=== PATIENT | male | born 1940 | race Caucasian/White ===

== ENCOUNTER 2017-06-17 12:40 | Inpatient (IN) | payer MEDICARE, OTHER ==
[~2017-06-17] VITALS: Ht 185.4 cm; Wt 109.1 kg
[~2017-06-17 12:40] MED LIST: ALLO100T PO; ATEN-169 PO; HYDR25TA4 PO; IBRU140C PO; LISI-600 PO; METF500T PO; SYN0.088T PO
[2017-06-17 13:40] LABS: BASOPHILS % (AUTO) 0.3 % (0-1); EOSINOPHILS # (AUTO) 0.2 X10'3 (0-0.9); EOSINOPHILS % (AUTO) 1.5 % (0-6); HEMATOCRIT 41.1 % (42.0-52.0); HEMOGLOBIN 13.5 g/dl (14.0-17.9); LYMPHOCYTES # (AUTO) 2.7 X10'3 (1.1-4.8); LYMPHOCYTES % (AUTO) 21.8 % (21-51); MEAN CORPUSCULAR HEMOGLOBIN 31.7 PG (27.0-31.0); MEAN CORPUSCULAR HGB CONC 32.8 % (33.0-36.5); MEAN CORPUSCULAR VOLUME 96.7 FL (78-98); MEAN PLATELET VOLUME 8.7 FL (7.4-10.4); MONOCYTES # (AUTO) 0.8 X10'3 (0-0.9); MONOCYTES % (AUTO) 6.2 % (2-12); NEUTROPHILS # (AUTO) 8.7 X10'3 (1.8-7.7); NEUTROPHILS % (AUTO) 70.2 % (42-75); PLATELET COUNT 352 X10'3 (140-440); RED BLOOD COUNT 4.25 X10'6 (4.70-6.10); RED CELL DISTRIBUTION WIDTH 15.4 % (11.5-14.5); WHITE BLOOD COUNT 12.4 X10'3 (4.5-11.0)
[2017-06-17 13:46] LABS: INR 1.2 INR; PARTIAL THROMBOPLASTIN TIME 34 SECONDS (22-32); PROTHROMBIN TIME 12.6 SECONDS (9.0-12.0)
[2017-06-17 13:55] LABS: ALANINE AMINOTRANSFERASE 19 U/L (12-78); ALBUMIN 2.9 G/DL (3.4-5.0); ALBUMIN/GLOBULIN RATIO 0.6 (1.1-1.5); ALKALINE PHOSPHATASE 97 IU/L (46-116); ANION GAP 7 (8-16); ASPARTATE AMINO TRANSFERASE 17 U/L (10-37); BILIRUBIN,TOTAL 0.7 MG/DL (0.1-1.0); BLOOD UREA NITROGEN 18 MG/DL (7-18); BUN/CREATININE RATIO 14.9 (5.4-32.0); CALCIUM 9.5 MG/DL (8.5-10.1); CHLORIDE 99 MMOL/L (99-107); CREATININE 1.21 MG/DL (0.60-1.10); GLUCOSE 130 MG/DL (70-104); POTASSIUM 4.7 MMOL/L (3.5-5.1); SODIUM 135 MMOL/L (135-145); TOTAL CARBON DIOXIDE 28.7 MMOL/L (24-32); TOTAL PROTEIN 8.1 G/DL (6.4-8.2); eGFR 58 ML/MIN
[2017-06-17] MEDS ORDERED: LIDOcaine 1% 30ml vial SQ STA (15:32)
[2017-06-17] MEDS ORDERED: acetaminophen 325mg tablet PO PRN (17:00)
[2017-06-17] MEDS ORDERED: magnesium Cl slow-release 64mg tablet PO PRN (17:00)
[2017-06-17] MEDS ORDERED: morphine sulfate 8 MG/ML SYRINGE IV PRN ×2 (17:00)
[2017-06-17] MEDS ORDERED: HYDROcodone/acetaminophen 10/325mg tab PO PRN (17:00)
[2017-06-17] MEDS ORDERED: HYDROmorphone 1 mg/ml syringe IV PRN (17:00)
[2017-06-17] MEDS ORDERED: mag hydrox/Alum hydrox/simeth 30ml oral suspension PO PRN (17:00)
[2017-06-17] MEDS ORDERED: potassium Cl 20 mEq SR tablet PO PRN ×2 (17:00)
[2017-06-17] MEDS ORDERED: magnesium 4gm in 100ml NS 100 ML IV PRN (17:00)
[2017-06-17] MEDS ORDERED: ondansetron/PF 4mg/2ml inj IV PRN (17:00)
[2017-06-17] MEDS ORDERED: potassium Cl 40MEQ/NS 500ml 500 ML IV PRN ×2 (17:00)
[2017-06-17] MEDS ORDERED: magnesium 2GM in 50ml NS 50 ML IV PRN (17:00)
[2017-06-17 19:30] VITALS: BP 131/91
[2017-06-17] MEDS: lisinopril 20mg tablet PO SCH (20:07)
[2017-06-17 23:00] VITALS: BP 135/79
[2017-06-18] VITALS (8 sets, daily range): BP systolic 108–152; BP diastolic 64–117
[2017-06-18 02:11] LABS: BASOPHILS # (AUTO) 0.1 X10'3 (0-0.2); BASOPHILS % (AUTO) 0.7 % (0-1); EOSINOPHILS # (AUTO) 0.1 X10'3 (0-0.9); EOSINOPHILS % (AUTO) 0.5 % (0-6); HEMATOCRIT 38.3 % (42.0-52.0); HEMOGLOBIN 12.3 g/dl (14.0-17.9); LYMPHOCYTES # (AUTO) 3.3 X10'3 (1.1-4.8); LYMPHOCYTES % (AUTO) 30.2 % (21-51); MEAN CORPUSCULAR HEMOGLOBIN 30.8 PG (27.0-31.0); MEAN CORPUSCULAR HGB CONC 32.2 % (33.0-36.5); MEAN CORPUSCULAR VOLUME 95.7 FL (78-98); MONOCYTES # (AUTO) 0.7 X10'3 (0-0.9); MONOCYTES % (AUTO) 6.8 % (2-12); NEUTROPHILS # (AUTO) 6.6 X10'3 (1.8-7.7); NEUTROPHILS % (AUTO) 61.8 % (42-75); PLATELET COUNT 279 X10'3 (140-440); RED BLOOD COUNT 4.01 X10'6 (4.70-6.10); RED CELL DISTRIBUTION WIDTH 14.2 % (11.5-14.5); WHITE BLOOD COUNT 10.8 X10'3 (4.5-11.0)
[2017-06-18 02:14] LABS: ALBUMIN 2.7 G/DL (3.4-5.0); ANION GAP 10 (8-16); BLOOD UREA NITROGEN 22 MG/DL (7-18); BUN/CREATININE RATIO 19.5 (5.4-32.0); CALCIUM 9.7 MG/DL (8.5-10.1); CHLORIDE 102 MMOL/L (99-107); CREATININE 1.13 MG/DL (0.60-1.10); GLUCOSE 107 MG/DL (70-104); MAGNESIUM 1.9 MG/DL (1.5-2.4); POTASSIUM 4.5 MMOL/L (3.5-5.1); SODIUM 137 MMOL/L (135-145); TOTAL CARBON DIOXIDE 24.9 MMOL/L (24-32); eGFR 63 ML/MIN
[2017-06-18] MEDS: levoTHYROXINE 88mcg tablet PO SCH (07:44)
[2017-06-18] MEDS: lisinopril 20mg tablet PO SCH ×2 (07:45→20:51)
[2017-06-18] MEDS: allopurinol 100mg tablet PO SCH (07:45)
[2017-06-18] MEDS: K and/or MAG REPLACEMENT MC SCH (07:46)
[2017-06-18] MEDS: IBRUTINIB PO SCH (08:00)
[2017-06-18 16:29] LABS: BFAPPEAR HAZY
[2017-06-18 16:30] LABS: BF RBC COUNT 6500 /CU MM; BF WBC COUNT 1125 /CU MM (0-1000); BFCOLOR YELLOW
[2017-06-18 16:31] LABS: LYMPHOCYTES,BODY FLUID 95 %; MONOCYTES,BODY FLUID 0 %; NEUTROPHILS,BODY FLUID 5 %
[2017-06-18 18:42] LABS: BFVOLUME 57 ML
[2017-06-18] MEDS ORDERED: guaiFENesin/DM 10ml UD oral syrup PO PRN (21:10)
[2017-06-18] MEDS: guaiFENesin/DM oral syrup 5 ML CUP PO PRN (21:48)
[2017-06-19] VITALS (7 sets, daily range): BP systolic 94–114; BP diastolic 57–70
[2017-06-19] MEDS ORDERED: furosemide 10 MG/1 ML 10ml inj IV STA (01:48)
[2017-06-19] MEDS ORDERED: albuterol 2.5 MG/3 ML nebule NEB PRN (02:05)
[2017-06-19] MEDS ORDERED: albuterol 2.5 MG/3 ML nebule ONE (02:13)
[2017-06-19 02:41] LABS: ABG BASE EXCESS -0.7 mmol/L (-2.0-3.0); ABG HCO3 23.1 mmol/L (22.0-26.0); ABG OXYGEN SATURATION 91.4 % (95-98); ABG PH (T) 7.426 (7.350-7.450); ABG PO2 (T) 60.1 mmHg (83-108); ALLEN'S TEST Positive; FCOHb 0.3 % (0.5-1.5); FLOW 6 L/min; FMetHb 0.2 % (0.3-1.12); FO2Hb 90.9 % (94-100); RESPIRATORY RATE (OBSERVED) 18 b/min; TOTAL HEMOGLOBIN 14.9 G/dl (14.0-18.0)
[2017-06-19 06:06] LABS: BASOPHILS # (AUTO) 0.1 X10'3 (0-0.2); BASOPHILS % (AUTO) 0.4 % (0-1); EOSINOPHILS # (AUTO) 0.2 X10'3 (0-0.9); EOSINOPHILS % (AUTO) 1.5 % (0-6); HEMATOCRIT 46.8 % (42.0-52.0); LYMPHOCYTES # (AUTO) 2.3 X10'3 (1.1-4.8); LYMPHOCYTES % (AUTO) 16.1 % (21-51); MEAN CORPUSCULAR HEMOGLOBIN 31.3 PG (27.0-31.0); MEAN CORPUSCULAR HGB CONC 32.2 % (33.0-36.5); MEAN CORPUSCULAR VOLUME 97.3 FL (78-98); MEAN PLATELET VOLUME 8.8 FL (7.4-10.4); MONOCYTES # (AUTO) 1.1 X10'3 (0-0.9); MONOCYTES % (AUTO) 7.4 % (2-12); NEUTROPHILS # (AUTO) 10.5 X10'3 (1.8-7.7); NEUTROPHILS % (AUTO) 74.6 % (42-75); PLATELET COUNT 302 X10'3 (140-440); WHITE BLOOD COUNT 14.1 X10'3 (4.5-11.0)
[2017-06-19 06:15] LABS: ALBUMIN 2.5 G/DL (3.4-5.0); ANION GAP 9 (8-16); BLOOD UREA NITROGEN 26 MG/DL (7-18); BUN/CREATININE RATIO 18.3 (5.4-32.0); CALCIUM 9.4 MG/DL (8.5-10.1); CHLORIDE 100 MMOL/L (99-107); CREATININE 1.42 MG/DL (0.60-1.10); GLUCOSE 147 MG/DL (70-104); MAGNESIUM 1.5 MG/DL (1.5-2.4); POTASSIUM 3.9 MMOL/L (3.5-5.1); SODIUM 135 MMOL/L (135-145); TOTAL CARBON DIOXIDE 26.2 MMOL/L (24-32); eGFR 48 ML/MIN
[2017-06-19] MEDS: K and/or MAG REPLACEMENT MC SCH (08:00)
[2017-06-19] MEDS: IBRUTINIB PO SCH (08:00)
[2017-06-19] MEDS: lisinopril 20mg tablet PO SCH ×3 (08:00→19:29)
[2017-06-19] MEDS: levoTHYROXINE 88mcg tablet PO SCH (08:03)
[2017-06-19] MEDS: allopurinol 100mg tablet PO SCH (08:03)
[2017-06-19] MEDS: HYDROcodone/acetaminophen 5mg/325mg tablet PO PRN ×2 (08:06→19:21)
[2017-06-20 03:00] VITALS: BP 97/71
[2017-06-20 06:00] VITALS: BP 106/66
[2017-06-20 06:08] LABS: BASOPHILS # (AUTO) 0.1 X10'3 (0-0.2); BASOPHILS % (AUTO) 0.6 % (0-1); EOSINOPHILS # (AUTO) 0.6 X10'3 (0-0.9); EOSINOPHILS % (AUTO) 4.4 % (0-6); HEMATOCRIT 42.6 % (42.0-52.0); HEMOGLOBIN 13.7 g/dl (14.0-17.9); LYMPHOCYTES # (AUTO) 4.5 X10'3 (1.1-4.8); LYMPHOCYTES % (AUTO) 35.2 % (21-51); MEAN CORPUSCULAR HEMOGLOBIN 31.3 PG (27.0-31.0); MEAN CORPUSCULAR HGB CONC 32.2 % (33.0-36.5); MEAN CORPUSCULAR VOLUME 97.2 FL (78-98); MEAN PLATELET VOLUME 8.9 FL (7.4-10.4); MONOCYTES # (AUTO) 0.9 X10'3 (0-0.9); MONOCYTES % (AUTO) 7.3 % (2-12); NEUTROPHILS # (AUTO) 6.8 X10'3 (1.8-7.7); NEUTROPHILS % (AUTO) 52.5 % (42-75); PLATELET COUNT 273 X10'3 (140-440); RED BLOOD COUNT 4.38 X10'6 (4.70-6.10); WHITE BLOOD COUNT 12.9 X10'3 (4.5-11.0)
[2017-06-20 06:34] LABS: ALBUMIN 2.3 G/DL (3.4-5.0); ANION GAP 6 (8-16); BLOOD UREA NITROGEN 30 MG/DL (7-18); BUN/CREATININE RATIO 19.5 (5.4-32.0); CHLORIDE 100 MMOL/L (99-107); CREATININE 1.54 MG/DL (0.60-1.10); GLUCOSE 120 MG/DL (70-104); MAGNESIUM 1.7 MG/DL (1.5-2.4); POTASSIUM 3.8 MMOL/L (3.5-5.1); SODIUM 135 MMOL/L (135-145); TOTAL CARBON DIOXIDE 28.9 MMOL/L (24-32); eGFR 44 ML/MIN
[2017-06-20] MEDS: allopurinol 100mg tablet PO SCH (06:54)
[2017-06-20] MEDS: levoTHYROXINE 88mcg tablet PO SCH (06:54)
[2017-06-20] MEDS: lisinopril 20mg tablet PO SCH ×2 (06:54→19:56)
[2017-06-20] MEDS: IBRUTINIB PO SCH (06:54)
[2017-06-20] MEDS: K and/or MAG REPLACEMENT MC SCH (06:55)
[2017-06-20 11:00] VITALS: BP 107/72
[2017-06-20 15:00] VITALS: BP 114/73
[2017-06-20 19:00] VITALS: BP 100/67
[2017-06-20] MEDS: HYDROcodone/acetaminophen 5mg/325mg tablet PO PRN (19:56)
[2017-06-20 23:00] VITALS: BP 112/64
[2017-06-21 03:00] VITALS: BP 108/70
[2017-06-21 05:52] LABS: BASOPHILS # (AUTO) 0.1 X10'3 (0-0.2); BASOPHILS % (AUTO) 0.7 % (0-1); EOSINOPHILS # (AUTO) 0.4 X10'3 (0-0.9); EOSINOPHILS % (AUTO) 3.6 % (0-6); HEMATOCRIT 41.8 % (42.0-52.0); HEMOGLOBIN 13.6 g/dl (14.0-17.9); LYMPHOCYTES # (AUTO) 3.4 X10'3 (1.1-4.8); LYMPHOCYTES % (AUTO) 27.9 % (21-51); MEAN CORPUSCULAR HGB CONC 32.5 % (33.0-36.5); MEAN CORPUSCULAR VOLUME 98.2 FL (78-98); MEAN PLATELET VOLUME 8.5 FL (7.4-10.4); MONOCYTES # (AUTO) 0.9 X10'3 (0-0.9); MONOCYTES % (AUTO) 7.3 % (2-12); NEUTROPHILS # (AUTO) 7.3 X10'3 (1.8-7.7); NEUTROPHILS % (AUTO) 60.5 % (42-75); PLATELET COUNT 232 X10'3 (140-440); RED BLOOD COUNT 4.26 X10'6 (4.70-6.10); RED CELL DISTRIBUTION WIDTH 15.2 % (11.5-14.5); WHITE BLOOD COUNT 12.1 X10'3 (4.5-11.0)
[2017-06-21 06:00] VITALS: BP 121/7
[2017-06-21 06:25] LABS: ALBUMIN 2.2 G/DL (3.4-5.0); ANION GAP 6 (8-16); BLOOD UREA NITROGEN 24 MG/DL (7-18); BUN/CREATININE RATIO 18.5 (5.4-32.0); CHLORIDE 102 MMOL/L (99-107); GLUCOSE 117 MG/DL (70-104); MAGNESIUM 1.7 MG/DL (1.5-2.4); SODIUM 137 MMOL/L (135-145); TOTAL CARBON DIOXIDE 29.3 MMOL/L (24-32); eGFR 54 ML/MIN
[2017-06-21] MEDS: K and/or MAG REPLACEMENT MC SCH (08:00)
[2017-06-21] MEDS: IBRUTINIB PO SCH (08:00)
[2017-06-21] MEDS: lisinopril 20mg tablet PO SCH ×2 (08:06→20:20)
[2017-06-21] MEDS: allopurinol 100mg tablet PO SCH (08:06)
[2017-06-21] MEDS: levoTHYROXINE 88mcg tablet PO SCH (08:06)
[2017-06-21] MEDS ORDERED: LEVO112T52 PO (10:55)
[2017-06-21 11:00] VITALS: BP 100/73
[2017-06-21] MEDS: magnesium hydroxide 30ml (MOM) UD suspension PO PRN (11:56)
[2017-06-21 19:00] VITALS: BP 126/62
[2017-06-21] MEDS: temazepam 15mg capsule PO PRN ×2 (20:22→22:17)
[2017-06-21 23:00] VITALS: BP 112/70
[2017-06-22 02:59] VITALS: BP 129/77
[2017-06-22 05:19] LABS: BASOPHILS # (AUTO) 0.1 X10'3 (0-0.2); BASOPHILS % (AUTO) 0.5 % (0-1); EOSINOPHILS # (AUTO) 0.5 X10'3 (0-0.9); EOSINOPHILS % (AUTO) 3.7 % (0-6); HEMATOCRIT 41.2 % (42.0-52.0); HEMOGLOBIN 13.4 g/dl (14.0-17.9); LYMPHOCYTES # (AUTO) 2.8 X10'3 (1.1-4.8); MEAN CORPUSCULAR HEMOGLOBIN 31.7 PG (27.0-31.0); MEAN CORPUSCULAR HGB CONC 32.5 % (33.0-36.5); MEAN CORPUSCULAR VOLUME 97.6 FL (78-98); MEAN PLATELET VOLUME 8.9 FL (7.4-10.4); NEUTROPHILS % (AUTO) 64.8 % (42-75); PLATELET COUNT 224 X10'3 (140-440); RED BLOOD COUNT 4.22 X10'6 (4.70-6.10); RED CELL DISTRIBUTION WIDTH 14.9 % (11.5-14.5); WHITE BLOOD COUNT 12.4 X10'3 (4.5-11.0)
[2017-06-22 05:43] LABS: ALBUMIN 2.2 G/DL (3.4-5.0); ANION GAP 4 (8-16); BLOOD UREA NITROGEN 20 MG/DL (7-18); BUN/CREATININE RATIO 17.2 (5.4-32.0); CALCIUM 8.9 MG/DL (8.5-10.1); CHLORIDE 102 MMOL/L (99-107); CREATININE 1.16 MG/DL (0.60-1.10); GLUCOSE 125 MG/DL (70-104); MAGNESIUM 1.7 MG/DL (1.5-2.4); POTASSIUM 4.1 MMOL/L (3.5-5.1); SODIUM 137 MMOL/L (135-145); TOTAL CARBON DIOXIDE 30.7 MMOL/L (24-32); eGFR 61 ML/MIN
[2017-06-22 07:00] VITALS: BP 111/81
[2017-06-22] MEDS: allopurinol 100mg tablet PO SCH (07:38)
[2017-06-22] MEDS: lisinopril 20mg tablet PO SCH ×2 (07:38→20:05)
[2017-06-22] MEDS: levoTHYROXINE 112mcg tablet PO SCH (07:38)
[2017-06-22] MEDS: IBRUTINIB PO SCH (08:00)
[2017-06-22] MEDS: K and/or MAG REPLACEMENT MC SCH (08:00)
[2017-06-22] MEDS: magnesium hydroxide 30ml (MOM) UD suspension PO PRN (08:22)
[2017-06-22 11:00] VITALS: BP 104/68
[2017-06-22 15:00] VITALS: BP 111/66
[2017-06-22 19:00] VITALS: BP 129/54
[2017-06-22] MEDS: temazepam 15mg capsule PO PRN ×2 (20:05→21:57)
[2017-06-22] MEDS: HYDROcodone/acetaminophen 5mg/325mg tablet PO PRN (21:56)
[2017-06-22 23:00] VITALS: BP 119/74
[2017-06-23 03:00] VITALS: BP 98/71
[2017-06-23 05:36] LABS: BASOPHILS # (AUTO) 0.1 X10'3 (0-0.2); BASOPHILS % (AUTO) 0.6 % (0-1); EOSINOPHILS # (AUTO) 0.5 X10'3 (0-0.9); EOSINOPHILS % (AUTO) 4.2 % (0-6); HEMOGLOBIN 13.4 g/dl (14.0-17.9); LYMPHOCYTES # (AUTO) 4.2 X10'3 (1.1-4.8); LYMPHOCYTES % (AUTO) 34.3 % (21-51); MEAN CORPUSCULAR HEMOGLOBIN 31.6 PG (27.0-31.0); MEAN CORPUSCULAR HGB CONC 32.7 % (33.0-36.5); MEAN CORPUSCULAR VOLUME 96.8 FL (78-98); MEAN PLATELET VOLUME 9.2 FL (7.4-10.4); MONOCYTES # (AUTO) 0.9 X10'3 (0-0.9); MONOCYTES % (AUTO) 7.7 % (2-12); NEUTROPHILS # (AUTO) 6.5 X10'3 (1.8-7.7); NEUTROPHILS % (AUTO) 53.2 % (42-75); PLATELET COUNT 224 X10'3 (140-440); RED BLOOD COUNT 4.23 X10'6 (4.70-6.10); RED CELL DISTRIBUTION WIDTH 15.1 % (11.5-14.5); WHITE BLOOD COUNT 12.2 X10'3 (4.5-11.0)
[2017-06-23 06:57] LABS: ALANINE AMINOTRANSFERASE 21 U/L (12-78); ALBUMIN 2.1 G/DL (3.4-5.0); ALBUMIN/GLOBULIN RATIO 0.5 (1.1-1.5); ALKALINE PHOSPHATASE 69 IU/L (46-116); ANION GAP 5 (8-16); ASPARTATE AMINO TRANSFERASE 17 U/L (10-37); BILIRUBIN,TOTAL 0.5 MG/DL (0.1-1.0); BLOOD UREA NITROGEN 23 MG/DL (7-18); BUN/CREATININE RATIO 19.8 (5.4-32.0); CALCIUM 8.9 MG/DL (8.5-10.1); CHLORIDE 104 MMOL/L (99-107); CREATININE 1.16 MG/DL (0.60-1.10); GLUCOSE 127 MG/DL (70-104); POTASSIUM 4.2 MMOL/L (3.5-5.1); SODIUM 138 MMOL/L (135-145); TOTAL CARBON DIOXIDE 28.9 MMOL/L (24-32); TOTAL PROTEIN 6.1 G/DL (6.4-8.2); eGFR 61 ML/MIN
[2017-06-23 07:00] VITALS: BP 104/75
[2017-06-23] MEDS: IBRUTINIB PO SCH (08:00)
[2017-06-23] MEDS: K and/or MAG REPLACEMENT MC SCH (08:00)
[2017-06-23] MEDS: allopurinol 100mg tablet PO SCH (09:04)
[2017-06-23] MEDS: levoTHYROXINE 112mcg tablet PO SCH (09:04)
[2017-06-23] MEDS: lisinopril 20mg tablet PO SCH ×2 (09:04→19:04)
[2017-06-23] MEDS: magnesium hydroxide 30ml (MOM) UD suspension PO PRN (09:08)
[2017-06-23 11:00] VITALS: BP 107/75
[2017-06-23] MEDS ORDERED: normal saline 1000ml 1,000 ML IV SCH (11:15)
[2017-06-23] MEDS ORDERED: iohexol 300mg/ml 100ml inj. ONE (14:09)
[2017-06-23 15:00] VITALS: BP 129/67
[2017-06-23 19:00] VITALS: BP 117/67
[2017-06-23] MEDS: guaiFENesin/DM oral syrup 5 ML CUP PO PRN (19:00)
[2017-06-23] MEDS: temazepam 15mg capsule PO PRN (19:04)
[2017-06-23] MEDS: HYDROcodone/acetaminophen 5mg/325mg tablet PO PRN (20:53)
[2017-06-23 23:00] VITALS: BP 113/64
[2017-06-24 03:00] VITALS: BP 104/67
[2017-06-24] MEDS: guaiFENesin/DM oral syrup 5 ML CUP PO PRN ×2 (03:19→19:35)
[2017-06-24 05:30] VITALS: BP 130/73
[2017-06-24 06:12] LABS: BASOPHILS # (AUTO) 0.1 X10'3 (0-0.2); BASOPHILS % (AUTO) 0.5 % (0-1); EOSINOPHILS # (AUTO) 0.5 X10'3 (0-0.9); EOSINOPHILS % (AUTO) 4.5 % (0-6); HEMATOCRIT 40.4 % (42.0-52.0); HEMOGLOBIN 13.1 g/dl (14.0-17.9); LYMPHOCYTES # (AUTO) 2.8 X10'3 (1.1-4.8); LYMPHOCYTES % (AUTO) 24.1 % (21-51); MEAN CORPUSCULAR HEMOGLOBIN 31.7 PG (27.0-31.0); MEAN CORPUSCULAR HGB CONC 32.5 % (33.0-36.5); MEAN CORPUSCULAR VOLUME 97.7 FL (78-98); MEAN PLATELET VOLUME 9.1 FL (7.4-10.4); NEUTROPHILS # (AUTO) 7.2 X10'3 (1.8-7.7); NEUTROPHILS % (AUTO) 61.9 % (42-75); PLATELET COUNT 216 X10'3 (140-440); RED BLOOD COUNT 4.14 X10'6 (4.70-6.10); RED CELL DISTRIBUTION WIDTH 15.3 % (11.5-14.5); WHITE BLOOD COUNT 11.6 X10'3 (4.5-11.0)
[2017-06-24 06:36] LABS: ALANINE AMINOTRANSFERASE 23 U/L (12-78); ALBUMIN 2.2 G/DL (3.4-5.0); ALBUMIN/GLOBULIN RATIO 0.5 (1.1-1.5); ALKALINE PHOSPHATASE 71 IU/L (46-116); ANION GAP 7 (8-16); ASPARTATE AMINO TRANSFERASE 19 U/L (10-37); BILIRUBIN,TOTAL 0.5 MG/DL (0.1-1.0); BLOOD UREA NITROGEN 24 MG/DL (7-18); BUN/CREATININE RATIO 20.5 (5.4-32.0); CALCIUM 8.9 MG/DL (8.5-10.1); CHLORIDE 103 MMOL/L (99-107); CREATININE 1.17 MG/DL (0.60-1.10); GLUCOSE 131 MG/DL (70-104); MAGNESIUM 1.9 MG/DL (1.5-2.4); POTASSIUM 4.1 MMOL/L (3.5-5.1); SODIUM 137 MMOL/L (135-145); TOTAL CARBON DIOXIDE 27.3 MMOL/L (24-32); TOTAL PROTEIN 6.4 G/DL (6.4-8.2); eGFR 61 ML/MIN
[2017-06-24] MEDS: K and/or MAG REPLACEMENT MC SCH (08:00)
[2017-06-24] MEDS: IBRUTINIB PO SCH (08:00)
[2017-06-24] MEDS: levoTHYROXINE 112mcg tablet PO SCH (08:45)
[2017-06-24] MEDS: allopurinol 100mg tablet PO SCH (08:45)
[2017-06-24] MEDS: lisinopril 20mg tablet PO SCH ×2 (08:46→19:34)
[2017-06-24] MEDS: magnesium hydroxide 30ml (MOM) UD suspension PO PRN (08:52)
[2017-06-24 11:00] VITALS: BP 104/68
[2017-06-24] MEDS ORDERED: lactulose 20gm/30ml cup PO ONE (14:55)
[2017-06-24 15:00] VITALS: BP 135/78
[2017-06-24 19:00] VITALS: BP 120/64
[2017-06-24] MEDS: temazepam 15mg capsule PO PRN ×2 (19:34→21:40)
[2017-06-24 23:00] VITALS: BP 115/62
[2017-06-25] MEDS: guaiFENesin/DM oral syrup 5 ML CUP PO PRN ×2 (02:42→20:17)
[2017-06-25 03:00] VITALS: BP 107/73
[2017-06-25 05:30] VITALS: BP 123/74
[2017-06-25 06:01] LABS: BASOPHILS % (AUTO) 0.4 % (0-1); EOSINOPHILS # (AUTO) 0.5 X10'3 (0-0.9); EOSINOPHILS % (AUTO) 4.6 % (0-6); HEMATOCRIT 42.8 % (42.0-52.0); HEMOGLOBIN 13.8 g/dl (14.0-17.9); LYMPHOCYTES # (AUTO) 2.7 X10'3 (1.1-4.8); LYMPHOCYTES % (AUTO) 23.5 % (21-51); MEAN CORPUSCULAR HEMOGLOBIN 31.2 PG (27.0-31.0); MEAN CORPUSCULAR HGB CONC 32.3 % (33.0-36.5); MEAN CORPUSCULAR VOLUME 96.6 FL (78-98); MONOCYTES # (AUTO) 0.9 X10'3 (0-0.9); NEUTROPHILS # (AUTO) 7.2 X10'3 (1.8-7.7); NEUTROPHILS % (AUTO) 63.5 % (42-75); PLATELET COUNT 229 X10'3 (140-440); RED BLOOD COUNT 4.43 X10'6 (4.70-6.10); RED CELL DISTRIBUTION WIDTH 15.6 % (11.5-14.5); WHITE BLOOD COUNT 11.3 X10'3 (4.5-11.0)
[2017-06-25 06:44] LABS: ALANINE AMINOTRANSFERASE 32 U/L (12-78); ALBUMIN 2.5 G/DL (3.4-5.0); ALBUMIN/GLOBULIN RATIO 0.5 (1.1-1.5); ALKALINE PHOSPHATASE 85 IU/L (46-116); ANION GAP 4 (8-16); ASPARTATE AMINO TRANSFERASE 23 U/L (10-37); BILIRUBIN,TOTAL 0.5 MG/DL (0.1-1.0); BLOOD UREA NITROGEN 19 MG/DL (7-18); BUN/CREATININE RATIO 14.8 (5.4-32.0); CALCIUM 9.3 MG/DL (8.5-10.1); CHLORIDE 102 MMOL/L (99-107); CREATININE 1.28 MG/DL (0.60-1.10); GLUCOSE 136 MG/DL (70-104); POTASSIUM 4.4 MMOL/L (3.5-5.1); SODIUM 137 MMOL/L (135-145); TOTAL CARBON DIOXIDE 31.2 MMOL/L (24-32); TOTAL PROTEIN 7.2 G/DL (6.4-8.2); eGFR 55 ML/MIN
[2017-06-25] MEDS: IBRUTINIB PO SCH (08:00)
[2017-06-25] MEDS: K and/or MAG REPLACEMENT MC SCH (08:00)
[2017-06-25] MEDS: lisinopril 20mg tablet PO SCH ×2 (08:01→20:18)
[2017-06-25] MEDS: levoTHYROXINE 112mcg tablet PO SCH (08:02)
[2017-06-25] MEDS: allopurinol 100mg tablet PO SCH (08:03)
[2017-06-25 11:00] VITALS: BP 133/51
[2017-06-25 15:00] VITALS: BP 118/77
[2017-06-25 18:00] VITALS: BP 119/73
[2017-06-25] MEDS: temazepam 15mg capsule PO PRN (20:17)
[2017-06-25 23:00] VITALS: BP 100/50
[2017-06-26 03:00] VITALS: BP 110/56
[2017-06-26] MEDS: guaiFENesin/DM oral syrup 5 ML CUP PO PRN ×2 (03:39→09:19)
[2017-06-26 06:00] VITALS: BP 114/64
[2017-06-26 06:39] LABS: BASOPHILS % (AUTO) 0.3 % (0-1); EOSINOPHILS # (AUTO) 0.4 X10'3 (0-0.9); EOSINOPHILS % (AUTO) 3.3 % (0-6); HEMATOCRIT 42.1 % (42.0-52.0); HEMOGLOBIN 13.8 g/dl (14.0-17.9); LYMPHOCYTES # (AUTO) 1.8 X10'3 (1.1-4.8); MEAN CORPUSCULAR HEMOGLOBIN 31.7 PG (27.0-31.0); MEAN CORPUSCULAR HGB CONC 32.7 % (33.0-36.5); MEAN CORPUSCULAR VOLUME 96.8 FL (78-98); MONOCYTES # (AUTO) 0.8 X10'3 (0-0.9); MONOCYTES % (AUTO) 7.6 % (2-12); NEUTROPHILS # (AUTO) 7.6 X10'3 (1.8-7.7); NEUTROPHILS % (AUTO) 71.8 % (42-75); PLATELET COUNT 200 X10'3 (140-440); RED BLOOD COUNT 4.34 X10'6 (4.70-6.10); RED CELL DISTRIBUTION WIDTH 15.1 % (11.5-14.5); WHITE BLOOD COUNT 10.6 X10'3 (4.5-11.0)
[2017-06-26] MEDS: allopurinol 100mg tablet PO SCH (07:27)
[2017-06-26] MEDS: IBRUTINIB PO SCH (07:27)
[2017-06-26] MEDS: lisinopril 20mg tablet PO SCH (07:27)
[2017-06-26] MEDS: levoTHYROXINE 112mcg tablet PO SCH (07:27)
[2017-06-26] MEDS: K and/or MAG REPLACEMENT MC SCH (07:29)
[2017-06-26] MEDS ORDERED: apixaban 5mg tablet PO SCH (08:00)
[2017-06-26 08:09] LABS: ALANINE AMINOTRANSFERASE 29 U/L (12-78); ALBUMIN 2.4 G/DL (3.4-5.0); ALBUMIN/GLOBULIN RATIO 0.6 (1.1-1.5); ALKALINE PHOSPHATASE 78 IU/L (46-116); ANION GAP 9 (8-16); ASPARTATE AMINO TRANSFERASE 24 U/L (10-37); BILIRUBIN,TOTAL 0.6 MG/DL (0.1-1.0); BLOOD UREA NITROGEN 22 MG/DL (7-18); BUN/CREATININE RATIO 18.2 (5.4-32.0); CALCIUM 8.6 MG/DL (8.5-10.1); CHLORIDE 102 MMOL/L (99-107); CREATININE 1.21 MG/DL (0.60-1.10); GLUCOSE 140 MG/DL (70-104); SODIUM 137 MMOL/L (135-145); TOTAL CARBON DIOXIDE 26.3 MMOL/L (24-32); TOTAL PROTEIN 6.6 G/DL (6.4-8.2); eGFR 58 ML/MIN
[2017-06-26 11:00] VITALS: BP 122/74
[2017-06-26] MEDS ORDERED: APIX5TAB3 PO (11:19)
== END 2017-06-26 13:40 | disposition home health service (06) | DRG 291 ==
LOC: ER 12:40 → ED HOLD 16:57 → PCU 3S 19:25
PROVIDERS: ADMIT Internal Medicine; ATTEND Family Medicine
PROC: 0W9B3ZX Drainage of Left Pleural Cavity, Percutaneous Approach, Diagnostic (ICD-10-PCS; principal; 2017-06-17)
PROC: 0W9B30Z Drainage of Left Pleural Cavity with Drainage Device, Percutaneous Approach (ICD-10-PCS; 2017-06-18)
PROC: BW241ZZ Computerized Tomography (CT Scan) of Chest and Abdomen using Low Osmolar Contrast (ICD-10-PCS; 2017-06-23)
DX: I11.0 Hypertensive heart disease with heart failure (principal); J96.01 Acute respiratory failure with hypoxia; N17.0 Acute kidney failure with tubular necrosis; E43 Unspecified severe protein-calorie malnutrition; J90 Pleural effusion, not elsewhere classified; D63.8 Anemia in other chronic diseases classified elsewhere; C91.10 Chronic lymphocytic leukemia of B-cell type not having achieved remission; I48.91 Unspecified atrial fibrillation; E11.9 Type 2 diabetes mellitus without complications; I50.9 Heart failure, unspecified; E03.9 Hypothyroidism, unspecified; M10.9 Gout, unspecified; Z88.1 Allergy status to other antibiotic agents; Z79.01 Long term (current) use of anticoagulants; Z79.899 Other long term (current) drug therapy; Z91.14 Patient's other noncompliance with medication regimen; Z68.37 Body mass index [BMI] 37.0-37.9, adult
CPT/HCPCS: 32557; 36415; 36600; 71010; 71045; 71250; 71260; 76942; 80048; 80053; 82803; 83735; 84484; 85018; 85025; 85610; 85730; 87070; 88108; 88305; 89051; 93005; 94640; 94667; 94760; 99285; A6213; A6223; A6251; A6253; A6257; A6258; J1940; J2270; J3490; J7030; Q9967

== ENCOUNTER 2017-07-20 07:47 | Day surgery (SDC) | payer MEDICARE, OTHER ==
[2017-07-20] VITALS (9 sets, daily range): BP systolic 77–103; BP diastolic 43–64
[~2017-07-20] VITALS: Ht 185.4 cm; Wt 104.5 kg
[~2017-07-20 07:47] MED LIST changes: +APIX5TAB3 PO; -HYDR25TA4 PO; +LEVO112T52 PO; -METF500T PO; -SYN0.088T PO
[2017-07-20] MEDS ORDERED: HYDROcodone/acetaminophen 10/325mg tab PO PRN (08:15)
[2017-07-20] MEDS ORDERED: APIX5TAB3 PO (08:27)
[2017-07-20] MEDS ORDERED: LIDOcaine 1%/PF (10mg/ml) 5ml vial ONE (08:48)
[2017-07-20 10:03] LABS: ALBUMIN,BODY FLUID 2.1 G/DL; TOTAL PROTEIN,BODY FLUID 4.2 G/DL
[2017-07-20] MEDS ORDERED: LIDOcaine 1% 30ml vial SQ STA (10:34)
== END 2017-07-20 10:00 | disposition home or self-care (01) ==
LOC: SSTAY O 07:47
PROVIDERS: ATTEND Radiology Diagnostic Radiology
DX: J90 Pleural effusion, not elsewhere classified (principal); Z85.6 Personal history of leukemia; I48.91 Unspecified atrial fibrillation; I11.0 Hypertensive heart disease with heart failure; I50.9 Heart failure, unspecified; Z87.01 Personal history of pneumonia (recurrent); I25.10 Atherosclerotic heart disease of native coronary artery without angina pectoris; E11.9 Type 2 diabetes mellitus without complications; E03.9 Hypothyroidism, unspecified; Z98.890 Other specified postprocedural states; Z88.1 Allergy status to other antibiotic agents; Z79.01 Long term (current) use of anticoagulants
CPT/HCPCS: 32555; 71045; 82042; 82465; 82945; 83615; 84157; J2001; J3490

== ENCOUNTER 2017-07-27 07:02 | Day surgery (SDC) | payer MEDICARE, OTHER ==
[~2017-07-27] VITALS: Ht 185.4 cm; Wt 103.5 kg
[2017-07-27] VITALS (12 sets, daily range): BP systolic 115–151; BP diastolic 53–79
[2017-07-27] MEDS ORDERED: HYDROcodone/acetaminophen 10/325mg tab PO PRN (07:30)
[2017-07-27] MEDS ORDERED: LIDOcaine 1% 30ml vial SQ STA (10:53)
[2017-07-27] MEDS ORDERED: LIDOcaine 1% 30ml vial IJ ONE (10:55)
== END 2017-07-27 11:15 | disposition home or self-care (01) ==
LOC: SSTAY O 07:02
PROVIDERS: ATTEND Radiology Diagnostic Radiology
DX: J90 Pleural effusion, not elsewhere classified (principal); I11.9 Hypertensive heart disease without heart failure; I50.9 Heart failure, unspecified; I48.91 Unspecified atrial fibrillation; E11.9 Type 2 diabetes mellitus without complications; Z85.6 Personal history of leukemia; Z79.4 Long term (current) use of insulin; Z79.899 Other long term (current) drug therapy
CPT/HCPCS: 32555; 71045; J3490

== ENCOUNTER 2017-07-29 15:57 | Inpatient (IN) | payer MEDICARE, OTHER ==
[~2017-07-29] VITALS: Ht 185.4 cm; Wt 85.7 kg
[2017-07-29] MEDS ORDERED: diltiazem-D5W 125mg/125ml 125 ML IV ONE (16:13)
[2017-07-29] MEDS ORDERED: diltiazem 5mg/ml 5ml inj. IV ONE ×2 (16:15→17:05)
[2017-07-29 16:43] LABS: BASOPHILS % (AUTO) 0.3 % (0-1); EOSINOPHILS % (AUTO) 0.2 % (0-6); HEMATOCRIT 42.6 % (42.0-52.0); LYMPHOCYTES # (AUTO) 2.9 X10'3 (1.1-4.8); LYMPHOCYTES % (AUTO) 15.4 % (21-51); MEAN CORPUSCULAR HEMOGLOBIN 31.9 PG (27.0-31.0); MEAN CORPUSCULAR HGB CONC 32.9 % (33.0-36.5); MEAN CORPUSCULAR VOLUME 96.9 FL (78-98); MEAN PLATELET VOLUME 10.3 FL (7.4-10.4); MONOCYTES # (AUTO) 1.6 X10'3 (0-0.9); MONOCYTES % (AUTO) 8.5 % (2-12); NEUTROPHILS % (AUTO) 75.6 % (42-75); PLATELET COUNT 297 X10'3 (140-440); RED CELL DISTRIBUTION WIDTH 16.7 % (11.5-14.5); WHITE BLOOD COUNT 18.5 X10'3 (4.5-11.0)
[2017-07-29 17:09] LABS: ALANINE AMINOTRANSFERASE 28 U/L (12-78); ALBUMIN 2.5 G/DL (3.4-5.0); ALBUMIN/GLOBULIN RATIO 0.5 (1.1-1.5); ALKALINE PHOSPHATASE 77 IU/L (46-116); ANION GAP 11 (8-16); ASPARTATE AMINO TRANSFERASE 23 U/L (10-37); BILIRUBIN,TOTAL 0.7 MG/DL (0.1-1.0); BLOOD UREA NITROGEN 52 MG/DL (7-18); BUN/CREATININE RATIO 31.1 (5.4-32.0); CALCIUM 9.4 MG/DL (8.5-10.1); CHLORIDE 99 MMOL/L (99-107); CREATININE 1.67 MG/DL (0.60-1.10); GLUCOSE 119 MG/DL (70-104); MAGNESIUM 2.1 MG/DL (1.5-2.4); POTASSIUM 4.1 MMOL/L (3.5-5.1); SODIUM 135 MMOL/L (135-145); TOTAL CARBON DIOXIDE 25.2 MMOL/L (24-32); TOTAL PROTEIN 7.3 G/DL (6.4-8.2); eGFR 40 ML/MIN
[2017-07-29] MEDS ORDERED: magnesium 4gm in 100ml NS 100 ML IV PRN (17:55)
[2017-07-29] MEDS ORDERED: acetaminophen 325mg tablet PO PRN (17:55)
[2017-07-29] MEDS ORDERED: mag hydrox/Alum hydrox/simeth 30ml oral suspension PO PRN (17:55)
[2017-07-29] MEDS ORDERED: piperacillin/tazo 3.375gm/50ml 50 ML IV ONE (17:55)
[2017-07-29] MEDS ORDERED: ondansetron/PF 4mg/2ml inj IV PRN (17:55)
[2017-07-29] MEDS ORDERED: potassium Cl 20 mEq SR tablet PO PRN ×2 (17:55)
[2017-07-29] MEDS ORDERED: magnesium 2GM in 50ml NS 50 ML IV PRN (17:55)
[2017-07-29] MEDS ORDERED: potassium Cl 40MEQ/NS 500ml 500 ML IV PRN ×2 (17:55)
[2017-07-29] MEDS ORDERED: magnesium Cl slow-release 64mg tablet PO PRN (17:55)
[2017-07-29] MEDS ORDERED: azithromycin/NS 500mg/250ml 250 ML IV ONE (18:05)
[2017-07-29] MEDS ORDERED: atenolol 50mg tablet PO SCH (18:10)
[2017-07-29] MEDS ORDERED: glucagon, human recombinant 1mg kit SUBCUT PRN (19:10)
[2017-07-29] MEDS ORDERED: dextrose 50%-water 50ml dispensing syringe IV PRN ×2 (19:10)
[2017-07-29] MEDS ORDERED: dextrose ORAL solution 15 GM/59 ML bottle PO PRN ×2 (19:10)
[2017-07-29] MEDS ORDERED: MESSAGE TO PHARMACY PO ONE (19:10)
[2017-07-29 19:14] LABS: HEMOGLOBIN A1C 6.6 % (4.5-6.2)
[2017-07-29] MEDS: CefTRIAXone/D5W-Rocephin 1gm 50 ML IV SCH (20:50)
[2017-07-29] MEDS: furosemide 20 MG/2 ML vial IV SCH (20:50)
[2017-07-29] MEDS: metoprolol tartrate 25mg tablet PO SCH (20:51)
[2017-07-29] MEDS: insulin glargine (Lantus) pen - multi-dose SQ SCH (21:00)
[2017-07-29] MEDS: apixaban 5mg tablet PO SCH (21:10)
[2017-07-29] MEDS ORDERED: vancomycin/NS 1 GM ADD-VANTAGE 250 ML IV ONE (21:50)
[2017-07-30] MEDS: cefepime 1GM/NS ADD-VANTAGE 100 ML IV SCH ×3 (00:52→16:38)
[2017-07-30 04:43] LABS: ALANINE AMINOTRANSFERASE 32 U/L (12-78); ALBUMIN 2.2 G/DL (3.4-5.0); ALBUMIN/GLOBULIN RATIO 0.5 (1.1-1.5); ALKALINE PHOSPHATASE 71 IU/L (46-116); ANION GAP 11 (8-16); ASPARTATE AMINO TRANSFERASE 23 U/L (10-37); BILIRUBIN,TOTAL 0.5 MG/DL (0.1-1.0); BLOOD UREA NITROGEN 53 MG/DL (7-18); BUN/CREATININE RATIO 31.5 (5.4-32.0); CALCIUM 8.8 MG/DL (8.5-10.1); CHLORIDE 101 MMOL/L (99-107); CREATININE 1.68 MG/DL (0.60-1.10); GLUCOSE 127 MG/DL (70-104); MAGNESIUM 2.1 MG/DL (1.5-2.4); POTASSIUM 4.3 MMOL/L (3.5-5.1); SODIUM 135 MMOL/L (135-145); TOTAL CARBON DIOXIDE 23.4 MMOL/L (24-32); TOTAL PROTEIN 6.6 G/DL (6.4-8.2); eGFR 40 ML/MIN
[2017-07-30 05:01] LABS: BASOPHILS # (AUTO) 0.1 X10'3 (0-0.2); BASOPHILS % (AUTO) 0.5 % (0-1); EOSINOPHILS # (AUTO) 0.3 X10'3 (0-0.9); EOSINOPHILS % (AUTO) 1.5 % (0-6); HEMATOCRIT 38.2 % (42.0-52.0); HEMOGLOBIN 12.9 g/dl (14.0-17.9); LYMPHOCYTES # (AUTO) 2.5 X10'3 (1.1-4.8); LYMPHOCYTES % (AUTO) 13.2 % (21-51); MEAN CORPUSCULAR HEMOGLOBIN 32.4 PG (27.0-31.0); MEAN CORPUSCULAR HGB CONC 33.7 % (33.0-36.5); MEAN CORPUSCULAR VOLUME 96.3 FL (78-98); MEAN PLATELET VOLUME 9.8 FL (7.4-10.4); MONOCYTES # (AUTO) 1.5 X10'3 (0-0.9); MONOCYTES % (AUTO) 8.2 % (2-12); NEUTROPHILS # (AUTO) 14.5 X10'3 (1.8-7.7); NEUTROPHILS % (AUTO) 76.6 % (42-75); PLATELET COUNT 291 X10'3 (140-440); RED BLOOD COUNT 3.97 X10'6 (4.70-6.10); RED CELL DISTRIBUTION WIDTH 16.2 % (11.5-14.5); WHITE BLOOD COUNT 18.9 X10'3 (4.5-11.0)
[2017-07-30 06:02] LABS: CLARITY,URINE Clear (Clear); COLOR,URINE Yellow (Yellow); GLUCOSE, URINE Negative (Neg); KETONES,URINE Negative (Neg); LEUKOCYTE ESTERASE ,URINE Small (Neg); NITRITES, URINE Negative (Neg); OCCULT BLOOD,URINE Negative (Neg); PROTEIN,URINE Negative (Neg); UROBILINOGEN,URINE 0.2 E.U/dL (0.2-1.0)
[2017-07-30 06:07] LABS: UA COLLECTION TYPE URINAL
[2017-07-30 06:08] LABS: BACTERIA,URINE NONE SEEN /HPF (Neg); MUCUS STRANDS NONE SEEN /LPF (Neg); RBC,URINE NONE SEEN /HPF (0-2); SQUAMOUS EPITHELIAL CELL,UR FEW /LPF (FEW); WBC,URINE 0-4 /HPF (0-4)
[2017-07-30] MEDS: CefTRIAXone/D5W-Rocephin 1gm 50 ML IV SCH (08:00)
[2017-07-30] MEDS: metoprolol tartrate 25mg tablet PO SCH ×2 (08:00→20:00)
[2017-07-30] MEDS: furosemide 20 MG/2 ML vial IV SCH ×2 (08:00→20:00)
[2017-07-30] MEDS: K and/or MAG REPLACEMENT MC SCH (08:00)
[2017-07-30] MEDS: azithromycin/NS 500mg/250ml 250 ML IV SCH (08:00)
[2017-07-30] MEDS ORDERED: metoprolol succinate 25mg (24-HOUR) SR. Tablet PO SCH (08:00)
[2017-07-30 08:43] VITALS: BP 97/65
[2017-07-30] MEDS: allopurinol 300 MG tablet PO SCH (09:53)
[2017-07-30] MEDS: levoTHYROXINE 112mcg tablet PO SCH (09:53)
[2017-07-30] MEDS: apixaban 5mg tablet PO SCH (09:57)
[2017-07-30 11:00] VITALS: BP 84/58
[2017-07-30 15:00] VITALS: BP 92/63
[2017-07-30] MEDS: lactobacillus rhamnosus 10,000 MMU CELLS/CAPSULE PO SCH (16:38)
[2017-07-30 18:00] VITALS: BP 97/72
[2017-07-30] MEDS: insulin glargine (Lantus) pen - multi-dose SQ SCH (21:00)
[2017-07-30 22:00] VITALS: BP 100/66
[2017-07-30] MEDS: magnesium hydroxide 30ml (MOM) UD suspension PO PRN (22:28)
[2017-07-31] VITALS (11 sets, daily range): BP systolic 78–99; BP diastolic 50–64
[2017-07-31] MEDS: cefepime 1GM/NS ADD-VANTAGE 100 ML IV SCH ×2 (00:41→07:22)
[2017-07-31 06:27] LABS: BASOPHILS % (AUTO) 0.2 % (0-1); EOSINOPHILS # (AUTO) 0.4 X10'3 (0-0.9); EOSINOPHILS % (AUTO) 2.5 % (0-6); HEMATOCRIT 39.1 % (42.0-52.0); HEMOGLOBIN 12.8 g/dl (14.0-17.9); LYMPHOCYTES % (AUTO) 12.7 % (21-51); MEAN CORPUSCULAR HEMOGLOBIN 32.2 PG (27.0-31.0); MEAN CORPUSCULAR HGB CONC 32.8 % (33.0-36.5); MONOCYTES # (AUTO) 1.2 X10'3 (0-0.9); MONOCYTES % (AUTO) 7.9 % (2-12); NEUTROPHILS # (AUTO) 11.9 X10'3 (1.8-7.7); NEUTROPHILS % (AUTO) 76.7 % (42-75); PLATELET COUNT 294 X10'3 (140-440); RED BLOOD COUNT 3.99 X10'6 (4.70-6.10); WHITE BLOOD COUNT 15.5 X10'3 (4.5-11.0)
[2017-07-31 06:51] LABS: ALANINE AMINOTRANSFERASE 48 U/L (12-78); ALBUMIN/GLOBULIN RATIO 0.5 (1.1-1.5); ALKALINE PHOSPHATASE 70 IU/L (46-116); ANION GAP 11 (8-16); ASPARTATE AMINO TRANSFERASE 34 U/L (10-37); BILIRUBIN,TOTAL 0.6 MG/DL (0.1-1.0); BLOOD UREA NITROGEN 55 MG/DL (7-18); CALCIUM 8.7 MG/DL (8.5-10.1); CHLORIDE 100 MMOL/L (99-107); CREATININE 1.72 MG/DL (0.60-1.10); GLUCOSE 137 MG/DL (70-104); MAGNESIUM 2.3 MG/DL (1.5-2.4); POTASSIUM 4.1 MMOL/L (3.5-5.1); SODIUM 135 MMOL/L (135-145); TOTAL CARBON DIOXIDE 24.4 MMOL/L (24-32); TOTAL PROTEIN 6.3 G/DL (6.4-8.2); eGFR 39 ML/MIN
[2017-07-31] MEDS: lactobacillus rhamnosus 10,000 MMU CELLS/CAPSULE PO SCH ×2 (07:21→17:15)
[2017-07-31] MEDS: metoprolol tartrate 25mg tablet PO SCH ×2 (07:21→20:00)
[2017-07-31] MEDS: allopurinol 300 MG tablet PO SCH (07:22)
[2017-07-31] MEDS: azithromycin/NS 500mg/250ml 250 ML IV SCH (07:23)
[2017-07-31] MEDS: CefTRIAXone/D5W-Rocephin 1gm 50 ML IV SCH (07:23)
[2017-07-31] MEDS: furosemide 20 MG/2 ML vial IV SCH ×2 (07:24→08:00)
[2017-07-31] MEDS: levoTHYROXINE 112mcg tablet PO SCH (07:31)
[2017-07-31] MEDS: K and/or MAG REPLACEMENT MC SCH (08:00)
[2017-07-31 10:09] LABS: INR 1.2 INR; PARTIAL THROMBOPLASTIN TIME 34 SECONDS (22-32); PROTHROMBIN TIME 12.5 SECONDS (9.0-12.0)
[2017-07-31 10:21] LABS: C-REACTIVE PROTEIN 14.45 MG/DL (0.0-0.5); CREATINE KINASE 40 U/L (39-308); LIPASE 137 U/L (73-393)
[2017-07-31] MEDS ORDERED: LIDOcaine 1%/PF (10mg/ml) 5ml vial ONE ×2 (11:48)
[2017-07-31] MEDS ORDERED: doxycycline inj 100 MG in normal saline 100ml IV soln 100 ML IV SCH (20:00)
[2017-07-31] MEDS: insulin glargine (Lantus) pen - multi-dose SQ SCH (21:00)
[2017-08-01 02:00] VITALS: BP 80/54
[2017-08-01 06:00] VITALS: BP 78/56
[2017-08-01 06:57] LABS: BASOPHILS # (AUTO) 0.1 X10'3 (0-0.2); BASOPHILS % (AUTO) 0.4 % (0-1); EOSINOPHILS # (AUTO) 0.3 X10'3 (0-0.9); EOSINOPHILS % (AUTO) 2.3 % (0-6); HEMATOCRIT 37.3 % (42.0-52.0); HEMOGLOBIN 12.8 g/dl (14.0-17.9); LYMPHOCYTES # (AUTO) 2.3 X10'3 (1.1-4.8); LYMPHOCYTES % (AUTO) 16.9 % (21-51); MEAN CORPUSCULAR HEMOGLOBIN 32.5 PG (27.0-31.0); MEAN CORPUSCULAR HGB CONC 34.2 % (33.0-36.5); MEAN CORPUSCULAR VOLUME 95.1 FL (78-98); MEAN PLATELET VOLUME 9.7 FL (7.4-10.4); MONOCYTES # (AUTO) 1.2 X10'3 (0-0.9); MONOCYTES % (AUTO) 8.7 % (2-12); NEUTROPHILS # (AUTO) 9.9 X10'3 (1.8-7.7); NEUTROPHILS % (AUTO) 71.7 % (42-75); PLATELET COUNT 271 X10'3 (140-440); RED BLOOD COUNT 3.93 X10'6 (4.70-6.10); RED CELL DISTRIBUTION WIDTH 16.1 % (11.5-14.5); WHITE BLOOD COUNT 13.9 X10'3 (4.5-11.0)
[2017-08-01 07:20] LABS: ALANINE AMINOTRANSFERASE 59 U/L (12-78); ALBUMIN 1.8 G/DL (3.4-5.0); ALBUMIN/GLOBULIN RATIO 0.5 (1.1-1.5); ALKALINE PHOSPHATASE 71 IU/L (46-116); ANION GAP 11 (8-16); ASPARTATE AMINO TRANSFERASE 41 U/L (10-37); BILIRUBIN,TOTAL 0.5 MG/DL (0.1-1.0); BLOOD UREA NITROGEN 54 MG/DL (7-18); BUN/CREATININE RATIO 37.8 (5.4-32.0); CALCIUM 8.4 MG/DL (8.5-10.1); CHLORIDE 100 MMOL/L (99-107); CREATININE 1.43 MG/DL (0.60-1.10); GLUCOSE 118 MG/DL (70-104); MAGNESIUM 2.2 MG/DL (1.5-2.4); SODIUM 133 MMOL/L (135-145); TOTAL CARBON DIOXIDE 22.3 MMOL/L (24-32); TOTAL PROTEIN 5.8 G/DL (6.4-8.2); eGFR 48 ML/MIN
[2017-08-01] MEDS: furosemide 20 MG/2 ML vial IV SCH (08:00)
[2017-08-01] MEDS: metoprolol tartrate 25mg tablet PO SCH ×2 (08:00→19:35)
[2017-08-01] MEDS: levoTHYROXINE 112mcg tablet PO SCH (08:22)
[2017-08-01] MEDS: lactobacillus rhamnosus 10,000 MMU CELLS/CAPSULE PO SCH ×2 (08:22→08:26)
[2017-08-01] MEDS: allopurinol 300 MG tablet PO SCH (08:26)
[2017-08-01] MEDS: K and/or MAG REPLACEMENT MC SCH (08:27)
[2017-08-01 11:00] VITALS: BP 85/50
[2017-08-01 15:00] VITALS: BP 90/67
[2017-08-01 19:00] VITALS: BP 94/60
[2017-08-01] MEDS: magnesium hydroxide 30ml (MOM) UD suspension PO PRN (19:31)
[2017-08-01] MEDS: insulin glargine (Lantus) pen - multi-dose SQ SCH (20:49)
[2017-08-01 23:00] VITALS: BP 100/65
[2017-08-02] VITALS (7 sets, daily range): BP systolic 81–100; BP diastolic 52–69
[2017-08-02] MEDS ORDERED: digoxin 250mcg/ml 2ml ampule IV ONE (05:10)
[2017-08-02 06:03] LABS: BASOPHILS # (AUTO) 0.1 X10'3 (0-0.2); BASOPHILS % (AUTO) 0.4 % (0-1); EOSINOPHILS # (AUTO) 0.3 X10'3 (0-0.9); EOSINOPHILS % (AUTO) 2.3 % (0-6); HEMATOCRIT 38.6 % (42.0-52.0); HEMOGLOBIN 13.2 g/dl (14.0-17.9); LYMPHOCYTES # (AUTO) 2.7 X10'3 (1.1-4.8); LYMPHOCYTES % (AUTO) 20.3 % (21-51); MEAN CORPUSCULAR HEMOGLOBIN 32.5 PG (27.0-31.0); MEAN CORPUSCULAR HGB CONC 34.1 % (33.0-36.5); MEAN CORPUSCULAR VOLUME 95.4 FL (78-98); MEAN PLATELET VOLUME 9.4 FL (7.4-10.4); MONOCYTES # (AUTO) 1.1 X10'3 (0-0.9); MONOCYTES % (AUTO) 8.2 % (2-12); NEUTROPHILS # (AUTO) 9.3 X10'3 (1.8-7.7); NEUTROPHILS % (AUTO) 68.8 % (42-75); PLATELET COUNT 330 X10'3 (140-440); RED BLOOD COUNT 4.05 X10'6 (4.70-6.10); WHITE BLOOD COUNT 13.5 X10'3 (4.5-11.0)
[2017-08-02 06:39] LABS: ALANINE AMINOTRANSFERASE 72 U/L (12-78); ALBUMIN/GLOBULIN RATIO 0.5 (1.1-1.5); ALKALINE PHOSPHATASE 79 IU/L (46-116); ANION GAP 10 (8-16); ASPARTATE AMINO TRANSFERASE 49 U/L (10-37); BILIRUBIN,TOTAL 0.4 MG/DL (0.1-1.0); BLOOD UREA NITROGEN 45 MG/DL (7-18); CALCIUM 8.7 MG/DL (8.5-10.1); CHLORIDE 100 MMOL/L (99-107); CREATININE 1.45 MG/DL (0.60-1.10); GLUCOSE 126 MG/DL (70-104); MAGNESIUM 2.4 MG/DL (1.5-2.4); SODIUM 135 MMOL/L (135-145); TOTAL CARBON DIOXIDE 25.3 MMOL/L (24-32); TOTAL PROTEIN 6.2 G/DL (6.4-8.2); eGFR 47 ML/MIN
[2017-08-02] MEDS: metoprolol tartrate 25mg tablet PO SCH ×2 (07:18→20:00)
[2017-08-02] MEDS: furosemide 20 MG/2 ML vial IV SCH (07:18)
[2017-08-02] MEDS: levoTHYROXINE 112mcg tablet PO SCH (07:33)
[2017-08-02] MEDS: allopurinol 300 MG tablet PO SCH (07:33)
[2017-08-02] MEDS: lactobacillus rhamnosus 10,000 MMU CELLS/CAPSULE PO SCH ×2 (07:33→17:17)
[2017-08-02] MEDS: K and/or MAG REPLACEMENT MC SCH (08:00)
[2017-08-02] MEDS: magnesium hydroxide 30ml (MOM) UD suspension PO PRN (09:02)
[2017-08-02] MEDS ORDERED: magnesium citrate 296ml oral solution PO ONE (10:15)
[2017-08-02] MEDS ORDERED: HYDROcodone/acetaminophen 5mg/325mg tablet PO ONE (17:35)
[2017-08-02] MEDS ORDERED: guaiFENesin/codeine phos 10ml UD oral syrup PO PRN (17:40)
[2017-08-02] MEDS: insulin glargine (Lantus) pen - multi-dose SQ SCH (21:00)
[2017-08-03] VITALS (7 sets, daily range): BP systolic 93–124; BP diastolic 59–81
[2017-08-03] MEDS: furosemide 20 MG/2 ML vial IV SCH (06:59)
[2017-08-03] MEDS: metoprolol tartrate 25mg tablet PO SCH ×2 (07:00→20:00)
[2017-08-03 07:09] LABS: BASOPHILS # (AUTO) 0.1 X10'3 (0-0.2); BASOPHILS % (AUTO) 0.8 % (0-1); EOSINOPHILS # (AUTO) 0.3 X10'3 (0-0.9); HEMATOCRIT 36.2 % (42.0-52.0); HEMOGLOBIN 12.1 g/dl (14.0-17.9); LYMPHOCYTES # (AUTO) 2.7 X10'3 (1.1-4.8); LYMPHOCYTES % (AUTO) 25.9 % (21-51); MEAN CORPUSCULAR HEMOGLOBIN 32.1 PG (27.0-31.0); MEAN CORPUSCULAR HGB CONC 33.5 % (33.0-36.5); MEAN CORPUSCULAR VOLUME 95.8 FL (78-98); MONOCYTES # (AUTO) 0.7 X10'3 (0-0.9); MONOCYTES % (AUTO) 7.2 % (2-12); NEUTROPHILS # (AUTO) 6.5 X10'3 (1.8-7.7); NEUTROPHILS % (AUTO) 63.1 % (42-75); PLATELET COUNT 296 X10'3 (140-440); RED BLOOD COUNT 3.78 X10'6 (4.70-6.10); RED CELL DISTRIBUTION WIDTH 15.9 % (11.5-14.5); WHITE BLOOD COUNT 10.3 X10'3 (4.5-11.0)
[2017-08-03 07:21] LABS: ALANINE AMINOTRANSFERASE 59 U/L (12-78); ALBUMIN 1.8 G/DL (3.4-5.0); ALBUMIN/GLOBULIN RATIO 0.5 (1.1-1.5); ALKALINE PHOSPHATASE 73 IU/L (46-116); ANION GAP 6 (8-16); ASPARTATE AMINO TRANSFERASE 31 U/L (10-37); BILIRUBIN,TOTAL 0.4 MG/DL (0.1-1.0); BLOOD UREA NITROGEN 37 MG/DL (7-18); BUN/CREATININE RATIO 28.9 (5.4-32.0); CALCIUM 8.7 MG/DL (8.5-10.1); CHLORIDE 104 MMOL/L (99-107); CREATININE 1.28 MG/DL (0.60-1.10); GLUCOSE 122 MG/DL (70-104); MAGNESIUM 2.4 MG/DL (1.5-2.4); POTASSIUM 4.7 MMOL/L (3.5-5.1); SODIUM 137 MMOL/L (135-145); TOTAL CARBON DIOXIDE 26.6 MMOL/L (24-32); TOTAL PROTEIN 5.6 G/DL (6.4-8.2); eGFR 55 ML/MIN
[2017-08-03] MEDS: lactobacillus rhamnosus 10,000 MMU CELLS/CAPSULE PO SCH ×2 (07:22→17:16)
[2017-08-03] MEDS: K and/or MAG REPLACEMENT MC SCH (07:22)
[2017-08-03] MEDS: allopurinol 300 MG tablet PO SCH (07:22)
[2017-08-03] MEDS: levoTHYROXINE 112mcg tablet PO SCH (07:22)
[2017-08-03] MEDS: insulin glargine (Lantus) pen - multi-dose SQ SCH (21:00)
[2017-08-03] MEDS ORDERED: Melatonin 3mg tablet PO PRN (23:00)
[2017-08-04] VITALS (25 sets, daily range): BP systolic 93–154; BP diastolic 52–92
[2017-08-04] MEDS: lactobacillus rhamnosus 10,000 MMU CELLS/CAPSULE PO SCH ×2 (07:30→17:15)
[2017-08-04] MEDS ORDERED: MIDAZolam 1mg/ml 10ml vial ONE (07:53)
[2017-08-04] MEDS ORDERED: fentaNYL/PF 50MCG/1 ML 2ML syringe ONE (07:53)
[2017-08-04] MEDS: allopurinol 300 MG tablet PO SCH (08:00)
[2017-08-04] MEDS: furosemide 20 MG/2 ML vial IV SCH (08:00)
[2017-08-04] MEDS: levoTHYROXINE 112mcg tablet PO SCH (08:00)
[2017-08-04] MEDS: K and/or MAG REPLACEMENT MC SCH (08:00)
[2017-08-04] MEDS: metoprolol tartrate 25mg tablet PO SCH ×2 (08:00→20:00)
[2017-08-04] MEDS ORDERED: rocuronium 10mg/ml inj IV ONE ×2 (08:03)
[2017-08-04] MEDS ORDERED: propofol inj 20 ML IV ONE (08:03)
[2017-08-04] MEDS ORDERED: ceFAZolin 1000mg inj ONE ×3 (08:28→11:00)
[2017-08-04] MEDS ORDERED: metoprolol tartrate 1mg/ml inj IV ONE (09:16)
[2017-08-04] MEDS ORDERED: ringers solution, lacted 1,000 ML IV SCH (09:18)
[2017-08-04] MEDS ORDERED: ondansetron/PF 4mg/2ml inj IV PRN (09:20)
[2017-08-04] MEDS ORDERED: meperidine/PF 50mg/ml syringe IV PRN (09:20)
[2017-08-04] MEDS ORDERED: morphine 2 MG/ML inj. syringe IV PRN ×2 (09:20)
[2017-08-04] MEDS ORDERED: albumin (Human) 5% 250ml 250 ML IV ONE ×2 (10:42)
[2017-08-04] MEDS ORDERED: propofol 1000mg/100ml bottle 100 ML IV PRN (12:23)
[2017-08-04 12:30] LABS: ABG BASE EXCESS -5.2 mmol/L (-2.0-3.0); ABG HCO3 18.7 mmol/L (22.0-26.0); ABG OXYGEN SATURATION 98.3 % (95-98); ABG PCO2 (T) 30.4 mmHg (35.0-48.0); ABG PH (T) 7.403 (7.350-7.450); ABG PO2 (T) 115.2 mmHg (83-108); FCOHb 0.3 % (0.5-1.5); FMetHb 0.2 % (0.3-1.12); FO2Hb 97.8 % (94-100); PEEP 10 cm H2O; RESPIRATORY RATE 12 b/min; TIDAL VOLUME 600 mL; TOTAL HEMOGLOBIN 12.8 G/dl (14.0-18.0)
[2017-08-04] MEDS: FENTANYL-0.9 % NACL/PF 100 ML IV PRN ×2 (13:46→22:42)
[2017-08-04] MEDS: potassium CL 20mEq in D5-1/2NS 1,000 ML IV SCH (16:26)
[2017-08-04] MEDS: cefazolin 1gm/NS 100mL 100 ML IV SCH (16:26)
[2017-08-04] MEDS: insulin glargine (Lantus) pen - multi-dose SQ SCH (21:00)
[2017-08-04] MEDS ORDERED: albumin (human) 25% 100 ML IV solution IV ONE (22:15)
[2017-08-05] VITALS (23 sets, daily range): BP systolic 90–122; BP diastolic 52–72
[2017-08-05] MEDS: cefazolin 1gm/NS 100mL 100 ML IV SCH (01:37)
[2017-08-05] MEDS: potassium CL 20mEq in D5-1/2NS 1,000 ML IV SCH ×3 (02:01→12:12)
[2017-08-05 03:04] LABS: MAGNESIUM 2.2 MG/DL (1.5-2.4)
[2017-08-05 03:40] LABS: ABG BASE EXCESS -2.8 mmol/L (-2.0-3.0); ABG HCO3 21.5 mmol/L (22.0-26.0); ABG OXYGEN SATURATION 98.7 % (95-98); ABG PCO2 (T) 35.8 mmHg (35.0-48.0); ABG PH (T) 7.397 (7.350-7.450); ABG PO2 (T) 143.9 mmHg (83-108); FCOHb 0.3 % (0.5-1.5); FMetHb 0.2 % (0.3-1.12); FO2Hb 98.2 % (94-100); MINUTE VOLUME 9 L/min; PATIENT TEMPERATURE 37.2; PEEP 8 cm H2O; RESPIRATORY RATE 12 b/min; RESPIRATORY RATE (OBSERVED) 14 b/min; TIDAL VOLUME 600 mL; TOTAL HEMOGLOBIN 11.3 G/dl (14.0-18.0)
[2017-08-05] MEDS: allopurinol 300 MG tablet PO SCH (07:39)
[2017-08-05] MEDS: lactobacillus rhamnosus 10,000 MMU CELLS/CAPSULE PO SCH ×2 (07:39→17:30)
[2017-08-05] MEDS: furosemide 20 MG/2 ML vial IV SCH (07:39)
[2017-08-05] MEDS: levoTHYROXINE 112mcg tablet PO SCH (07:39)
[2017-08-05] MEDS: metoprolol tartrate 25mg tablet PO SCH ×2 (07:40→20:00)
[2017-08-05 07:47] LABS: ALANINE AMINOTRANSFERASE 32 U/L (12-78); ALBUMIN 2.8 G/DL (3.4-5.0); ALKALINE PHOSPHATASE 53 IU/L (46-116); ANION GAP 7 (8-16); ASPARTATE AMINO TRANSFERASE 17 U/L (10-37); BILIRUBIN,TOTAL 0.5 MG/DL (0.1-1.0); BLOOD UREA NITROGEN 31 MG/DL (7-18); BUN/CREATININE RATIO 22.5 (5.4-32.0); CALCIUM 8.5 MG/DL (8.5-10.1); CHLORIDE 104 MMOL/L (99-107); CREATININE 1.38 MG/DL (0.60-1.10); GLUCOSE 213 MG/DL (70-104); POTASSIUM 5.5 MMOL/L (3.5-5.1); SODIUM 136 MMOL/L (135-145); TOTAL CARBON DIOXIDE 24.9 MMOL/L (24-32); TOTAL PROTEIN 5.5 G/DL (6.4-8.2); eGFR 50 ML/MIN
[2017-08-05] MEDS: K and/or MAG REPLACEMENT MC SCH (08:00)
[2017-08-05] MEDS ORDERED: CADD PCA waste documentation MC PRN (08:45)
[2017-08-05] MEDS ORDERED: ipratropium/albuterol 3ml nebule NEB PRN (08:45)
[2017-08-05] MEDS ORDERED: racepinephrine 11.25mg/0.5ml nebule NEB PRN (08:45)
[2017-08-05] MEDS ORDERED: naloxone 0.4 mg/ml inj IV PRN (08:45)
[2017-08-05] MEDS: normal saline 1000ml 1,000 ML IV SCH ×2 (08:49→22:31)
[2017-08-05] MEDS: ipratropium/albuterol 3ml nebule NEB SCH ×3 (09:00→20:57)
[2017-08-05 09:29] LABS: BASOPHILS # (AUTO) 0.1 X10'3 (0-0.2); BASOPHILS % (AUTO) 0.4 % (0-1); EOSINOPHILS # (AUTO) 0.5 X10'3 (0-0.9); HEMATOCRIT 33.6 % (42.0-52.0); HEMOGLOBIN 11.2 g/dl (14.0-17.9); LYMPHOCYTES # (AUTO) 1.4 X10'3 (1.1-4.8); LYMPHOCYTES % (AUTO) 9.2 % (21-51); MEAN CORPUSCULAR HEMOGLOBIN 32.1 PG (27.0-31.0); MEAN CORPUSCULAR HGB CONC 33.5 % (33.0-36.5); MEAN CORPUSCULAR VOLUME 95.7 FL (78-98); MEAN PLATELET VOLUME 8.2 FL (7.4-10.4); MONOCYTES % (AUTO) 6.6 % (2-12); NEUTROPHILS # (AUTO) 12.6 X10'3 (1.8-7.7); NEUTROPHILS % (AUTO) 80.8 % (42-75); PLATELET COUNT 315 X10'3 (140-440); RED BLOOD COUNT 3.51 X10'6 (4.70-6.10); RED CELL DISTRIBUTION WIDTH 16.2 % (11.5-14.5); WHITE BLOOD COUNT 15.6 X10'3 (4.5-11.0)
[2017-08-05] MEDS: HYDROmorphone/NS 1 mg/ml CADD 50 ML IV SCH ×7 (11:00→23:00)
[2017-08-05] MEDS: insulin glargine (Lantus) pen - multi-dose SQ SCH (21:00)
[2017-08-05] MEDS ORDERED: amiodarone 200mg tablet PO ONE (22:00)
[2017-08-06] VITALS (23 sets, daily range): BP systolic 82–108; BP diastolic 59–74
[2017-08-06] MEDS: HYDROmorphone/NS 1 mg/ml CADD 50 ML IV SCH ×12 (01:00→23:00)
[2017-08-06] MEDS: ipratropium/albuterol 3ml nebule NEB SCH ×4 (03:12→21:23)
[2017-08-06 03:35] LABS: BASOPHILS % (AUTO) 0.3 % (0-1); EOSINOPHILS # (AUTO) 0.6 X10'3 (0-0.9); EOSINOPHILS % (AUTO) 3.7 % (0-6); HEMATOCRIT 35.8 % (42.0-52.0); HEMOGLOBIN 11.7 g/dl (14.0-17.9); LYMPHOCYTES # (AUTO) 1.2 X10'3 (1.1-4.8); LYMPHOCYTES % (AUTO) 7.3 % (21-51); MEAN CORPUSCULAR HEMOGLOBIN 31.9 PG (27.0-31.0); MEAN CORPUSCULAR HGB CONC 32.8 % (33.0-36.5); MEAN CORPUSCULAR VOLUME 97.3 FL (78-98); MEAN PLATELET VOLUME 8.5 FL (7.4-10.4); MONOCYTES % (AUTO) 6.3 % (2-12); NEUTROPHILS # (AUTO) 13.5 X10'3 (1.8-7.7); NEUTROPHILS % (AUTO) 82.4 % (42-75); PLATELET COUNT 293 X10'3 (140-440); RED BLOOD COUNT 3.68 X10'6 (4.70-6.10); RED CELL DISTRIBUTION WIDTH 16.2 % (11.5-14.5); WHITE BLOOD COUNT 16.4 X10'3 (4.5-11.0)
[2017-08-06 03:48] LABS: ALANINE AMINOTRANSFERASE 22 U/L (12-78); ALBUMIN 2.2 G/DL (3.4-5.0); ALBUMIN/GLOBULIN RATIO 0.7 (1.1-1.5); ALKALINE PHOSPHATASE 57 IU/L (46-116); ANION GAP 7 (8-16); ASPARTATE AMINO TRANSFERASE 12 U/L (10-37); BILIRUBIN,TOTAL 0.6 MG/DL (0.1-1.0); BLOOD UREA NITROGEN 24 MG/DL (7-18); BUN/CREATININE RATIO 20.2 (5.4-32.0); CALCIUM 8.4 MG/DL (8.5-10.1); CHLORIDE 106 MMOL/L (99-107); CREATININE 1.19 MG/DL (0.60-1.10); GLUCOSE 140 MG/DL (70-104); SODIUM 138 MMOL/L (135-145); TOTAL CARBON DIOXIDE 25.4 MMOL/L (24-32); TOTAL PROTEIN 5.2 G/DL (6.4-8.2); eGFR 59 ML/MIN
[2017-08-06] MEDS: metoprolol tartrate 25mg tablet PO SCH ×2 (08:00→20:00)
[2017-08-06] MEDS: K and/or MAG REPLACEMENT MC SCH (08:00)
[2017-08-06] MEDS: allopurinol 300 MG tablet PO SCH (08:22)
[2017-08-06] MEDS: furosemide 20 MG/2 ML vial IV SCH (08:22)
[2017-08-06] MEDS: amiodarone 200mg tablet PO SCH ×2 (08:22→20:52)
[2017-08-06] MEDS: lactobacillus rhamnosus 10,000 MMU CELLS/CAPSULE PO SCH ×2 (08:22→17:31)
[2017-08-06] MEDS: levoTHYROXINE 112mcg tablet PO SCH (08:22)
[2017-08-06] MEDS: normal saline 1000ml 1,000 ML IV SCH (11:28)
[2017-08-06] MEDS: Protein Shake (high protein) 240ml (8oz) cup PO SCH ×2 (13:17→19:11)
[2017-08-06] MEDS: cefazolin 1gm/NS 100mL 100 ML IV SCH (20:51)
[2017-08-06] MEDS: insulin glargine (Lantus) pen - multi-dose SQ SCH (21:00)
[2017-08-07] VITALS (24 sets, daily range): BP systolic 84–122; BP diastolic 60–80
[2017-08-07] MEDS: HYDROmorphone/NS 1 mg/ml CADD 50 ML IV SCH ×12 (01:00→23:00)
[2017-08-07] MEDS: normal saline 1000ml 1,000 ML IV SCH ×2 (01:13→14:36)
[2017-08-07] MEDS: ipratropium/albuterol 3ml nebule NEB SCH ×4 (03:10→21:05)
[2017-08-07 05:09] LABS: BASOPHILS % (AUTO) 0.2 % (0-1); EOSINOPHILS # (AUTO) 0.8 X10'3 (0-0.9); EOSINOPHILS % (AUTO) 6.5 % (0-6); HEMATOCRIT 33.7 % (42.0-52.0); HEMOGLOBIN 11.1 g/dl (14.0-17.9); LYMPHOCYTES # (AUTO) 1.2 X10'3 (1.1-4.8); LYMPHOCYTES % (AUTO) 9.6 % (21-51); MEAN CORPUSCULAR HEMOGLOBIN 31.7 PG (27.0-31.0); MEAN CORPUSCULAR HGB CONC 32.8 % (33.0-36.5); MEAN CORPUSCULAR VOLUME 96.7 FL (78-98); MEAN PLATELET VOLUME 8.4 FL (7.4-10.4); MONOCYTES # (AUTO) 0.8 X10'3 (0-0.9); MONOCYTES % (AUTO) 6.7 % (2-12); NEUTROPHILS # (AUTO) 9.6 X10'3 (1.8-7.7); PLATELET COUNT 264 X10'3 (140-440); RED BLOOD COUNT 3.49 X10'6 (4.70-6.10); RED CELL DISTRIBUTION WIDTH 16.2 % (11.5-14.5); WHITE BLOOD COUNT 12.5 X10'3 (4.5-11.0)
[2017-08-07 05:19] LABS: ALBUMIN 1.8 G/DL (3.4-5.0); ANION GAP 6 (8-16); BLOOD UREA NITROGEN 23 MG/DL (7-18); BUN/CREATININE RATIO 21.3 (5.4-32.0); CALCIUM 8.5 MG/DL (8.5-10.1); CHLORIDE 107 MMOL/L (99-107); CREATININE 1.08 MG/DL (0.60-1.10); GLUCOSE 147 MG/DL (70-104); MAGNESIUM 1.8 MG/DL (1.5-2.4); POTASSIUM 4.6 MMOL/L (3.5-5.1); SODIUM 139 MMOL/L (135-145); TOTAL CARBON DIOXIDE 26.3 MMOL/L (24-32); eGFR 66 ML/MIN
[2017-08-07] MEDS: K and/or MAG REPLACEMENT MC SCH (07:35)
[2017-08-07] MEDS: metoprolol tartrate 25mg tablet PO SCH ×2 (07:35→20:00)
[2017-08-07] MEDS: amiodarone 200mg tablet PO SCH ×2 (07:41→20:02)
[2017-08-07] MEDS: cefazolin 1gm/NS 100mL 100 ML IV SCH ×2 (07:41→15:18)
[2017-08-07] MEDS: levoTHYROXINE 112mcg tablet PO SCH (07:41)
[2017-08-07] MEDS: lactobacillus rhamnosus 10,000 MMU CELLS/CAPSULE PO SCH ×2 (07:42→16:41)
[2017-08-07] MEDS: furosemide 20 MG/2 ML vial IV SCH (07:42)
[2017-08-07] MEDS: allopurinol 300 MG tablet PO SCH (07:43)
[2017-08-07] MEDS: Protein Shake (high protein) 240ml (8oz) cup PO SCH ×3 (08:28→18:00)
[2017-08-07] MEDS: magnesium hydroxide 30ml (MOM) UD suspension PO SCH (20:02)
[2017-08-07] MEDS: insulin glargine (Lantus) pen - multi-dose SQ SCH (21:00)
[2017-08-08] VITALS (23 sets, daily range): BP systolic 83–118; BP diastolic 60–79
[2017-08-08] MEDS: cefazolin 1gm/NS 100mL 100 ML IV SCH ×3 (00:23→15:15)
[2017-08-08] MEDS: HYDROmorphone/NS 1 mg/ml CADD 50 ML IV SCH ×12 (01:00→23:00)
[2017-08-08] MEDS: ipratropium/albuterol 3ml nebule NEB SCH ×4 (03:12→20:33)
[2017-08-08] MEDS: normal saline 1000ml 1,000 ML IV SCH ×2 (03:20→16:49)
[2017-08-08 04:45] LABS: BASOPHILS % (AUTO) 0.1 % (0-1); EOSINOPHILS # (AUTO) 0.7 X10'3 (0-0.9); EOSINOPHILS % (AUTO) 5.7 % (0-6); HEMATOCRIT 33.9 % (42.0-52.0); HEMOGLOBIN 11.1 g/dl (14.0-17.9); LYMPHOCYTES % (AUTO) 7.6 % (21-51); MEAN CORPUSCULAR HEMOGLOBIN 31.2 PG (27.0-31.0); MEAN CORPUSCULAR HGB CONC 32.6 % (33.0-36.5); MEAN CORPUSCULAR VOLUME 95.8 FL (78-98); MEAN PLATELET VOLUME 7.8 FL (7.4-10.4); MONOCYTES # (AUTO) 0.8 X10'3 (0-0.9); NEUTROPHILS # (AUTO) 10.5 X10'3 (1.8-7.7); NEUTROPHILS % (AUTO) 80.6 % (42-75); PLATELET COUNT 278 X10'3 (140-440); RED BLOOD COUNT 3.54 X10'6 (4.70-6.10)
[2017-08-08 04:59] LABS: ALBUMIN 1.8 G/DL (3.4-5.0); ANION GAP 7 (8-16); BLOOD UREA NITROGEN 24 MG/DL (7-18); BUN/CREATININE RATIO 21.6 (5.4-32.0); CALCIUM 8.8 MG/DL (8.5-10.1); CHLORIDE 108 MMOL/L (99-107); CREATININE 1.11 MG/DL (0.60-1.10); GLUCOSE 174 MG/DL (70-104); POTASSIUM 4.4 MMOL/L (3.5-5.1); SODIUM 141 MMOL/L (135-145); TOTAL CARBON DIOXIDE 26.2 MMOL/L (24-32); eGFR 64 ML/MIN
[2017-08-08] MEDS: K and/or MAG REPLACEMENT MC SCH (07:42)
[2017-08-08] MEDS: metoprolol tartrate 25mg tablet PO SCH ×2 (08:00→20:00)
[2017-08-08] MEDS: furosemide 20 MG/2 ML vial IV SCH (08:00)
[2017-08-08] MEDS: Protein Shake (high protein) 240ml (8oz) cup PO SCH ×3 (08:53→18:00)
[2017-08-08] MEDS: levoTHYROXINE 112mcg tablet PO SCH (08:54)
[2017-08-08] MEDS: allopurinol 300 MG tablet PO SCH (08:54)
[2017-08-08] MEDS: amiodarone 200mg tablet PO SCH ×2 (08:54→20:58)
[2017-08-08] MEDS: magnesium hydroxide 30ml (MOM) UD suspension PO SCH ×2 (08:56→20:00)
[2017-08-08] MEDS: lactobacillus rhamnosus 10,000 MMU CELLS/CAPSULE PO SCH ×2 (08:58→16:57)
[2017-08-08] MEDS ORDERED: bisacodyl 10mg suppository rectal RC PRN (09:40)
[2017-08-08] MEDS ORDERED: metoclopramide 5 mg/ml inj IV SCH (14:00)
[2017-08-08] MEDS: insulin glargine (Lantus) pen - multi-dose SQ SCH (21:29)
[2017-08-09] VITALS (24 sets, daily range): BP systolic 91–117; BP diastolic 63–80
[2017-08-09] MEDS: cefazolin 1gm/NS 100mL 100 ML IV SCH ×3 (00:40→16:09)
[2017-08-09] MEDS: HYDROmorphone/NS 1 mg/ml CADD 50 ML IV SCH ×12 (01:00→23:00)
[2017-08-09] MEDS: ipratropium/albuterol 3ml nebule NEB SCH ×4 (02:27→20:36)
[2017-08-09 04:17] LABS: BASOPHILS % (AUTO) 0.1 % (0-1); EOSINOPHILS # (AUTO) 0.6 X10'3 (0-0.9); HEMATOCRIT 31.9 % (42.0-52.0); HEMOGLOBIN 10.7 g/dl (14.0-17.9); LYMPHOCYTES # (AUTO) 0.9 X10'3 (1.1-4.8); LYMPHOCYTES % (AUTO) 7.3 % (21-51); MEAN CORPUSCULAR HGB CONC 33.4 % (33.0-36.5); MEAN CORPUSCULAR VOLUME 95.7 FL (78-98); MEAN PLATELET VOLUME 7.6 FL (7.4-10.4); MONOCYTES # (AUTO) 0.6 X10'3 (0-0.9); MONOCYTES % (AUTO) 5.3 % (2-12); NEUTROPHILS # (AUTO) 9.8 X10'3 (1.8-7.7); NEUTROPHILS % (AUTO) 82.3 % (42-75); PLATELET COUNT 261 X10'3 (140-440); RED BLOOD COUNT 3.34 X10'6 (4.70-6.10); RED CELL DISTRIBUTION WIDTH 15.6 % (11.5-14.5); WHITE BLOOD COUNT 11.9 X10'3 (4.5-11.0)
[2017-08-09 04:27] LABS: ALBUMIN 1.7 G/DL (3.4-5.0); ANION GAP 9 (8-16); BLOOD UREA NITROGEN 24 MG/DL (7-18); BUN/CREATININE RATIO 21.8 (5.4-32.0); CALCIUM 8.5 MG/DL (8.5-10.1); CHLORIDE 107 MMOL/L (99-107); GLUCOSE 147 MG/DL (70-104); POTASSIUM 4.2 MMOL/L (3.5-5.1); SODIUM 140 MMOL/L (135-145); TOTAL CARBON DIOXIDE 24.2 MMOL/L (24-32); eGFR 65 ML/MIN
[2017-08-09] MEDS: normal saline 1000ml 1,000 ML IV SCH ×2 (06:06→19:47)
[2017-08-09] MEDS: furosemide 20 MG/2 ML vial IV SCH ×2 (08:00→08:59)
[2017-08-09] MEDS: Protein Shake (high protein) 240ml (8oz) cup PO SCH ×3 (08:00→18:00)
[2017-08-09] MEDS: K and/or MAG REPLACEMENT MC SCH (08:00)
[2017-08-09] MEDS: metoprolol tartrate 25mg tablet PO SCH ×2 (08:00→19:48)
[2017-08-09] MEDS: allopurinol 300 MG tablet PO SCH (08:59)
[2017-08-09] MEDS: levoTHYROXINE 112mcg tablet PO SCH (08:59)
[2017-08-09] MEDS: magnesium hydroxide 30ml (MOM) UD suspension PO SCH ×2 (09:00→19:49)
[2017-08-09] MEDS: lactobacillus rhamnosus 10,000 MMU CELLS/CAPSULE PO SCH ×2 (09:00→17:57)
[2017-08-09] MEDS: amiodarone 200mg tablet PO SCH ×2 (09:00→19:48)
[2017-08-09] MEDS: albumin (human) 25% 100 ML IV solution IV SCH ×2 (09:53→19:38)
[2017-08-09] MEDS: furosemide 10 MG/1 ML 10ml inj IV SCH ×2 (10:01→19:37)
[2017-08-09] MEDS: insulin Lispro (HumaLOG) vial - multi-dose SQ SCH ×2 (14:18→19:34)
[2017-08-09] MEDS: insulin glargine (Lantus) pen - multi-dose SQ SCH (21:25)
[2017-08-10] VITALS (23 sets, daily range): BP systolic 82–109; BP diastolic 51–76
[2017-08-10] MEDS: cefazolin 1gm/NS 100mL 100 ML IV SCH ×4 (00:14→23:36)
[2017-08-10] MEDS: HYDROmorphone/NS 1 mg/ml CADD 50 ML IV SCH ×12 (01:00→23:00)
[2017-08-10] MEDS: ipratropium/albuterol 3ml nebule NEB SCH ×4 (02:06→20:03)
[2017-08-10 03:39] LABS: BASOPHILS % (AUTO) 0.1 % (0-1); EOSINOPHILS # (AUTO) 0.7 X10'3 (0-0.9); EOSINOPHILS % (AUTO) 6.5 % (0-6); HEMATOCRIT 29.3 % (42.0-52.0); HEMOGLOBIN 9.9 g/dl (14.0-17.9); LYMPHOCYTES # (AUTO) 1.1 X10'3 (1.1-4.8); LYMPHOCYTES % (AUTO) 9.9 % (21-51); MEAN CORPUSCULAR HEMOGLOBIN 32.1 PG (27.0-31.0); MEAN CORPUSCULAR HGB CONC 33.6 % (33.0-36.5); MEAN CORPUSCULAR VOLUME 95.6 FL (78-98); MEAN PLATELET VOLUME 7.6 FL (7.4-10.4); MONOCYTES # (AUTO) 0.7 X10'3 (0-0.9); NEUTROPHILS # (AUTO) 8.6 X10'3 (1.8-7.7); NEUTROPHILS % (AUTO) 77.5 % (42-75); PLATELET COUNT 246 X10'3 (140-440); RED BLOOD COUNT 3.07 X10'6 (4.70-6.10); RED CELL DISTRIBUTION WIDTH 15.6 % (11.5-14.5); WHITE BLOOD COUNT 11.1 X10'3 (4.5-11.0)
[2017-08-10 03:53] LABS: ALBUMIN 2.3 G/DL (3.4-5.0); ANION GAP 7 (8-16); BLOOD UREA NITROGEN 24 MG/DL (7-18); CALCIUM 8.8 MG/DL (8.5-10.1); CHLORIDE 107 MMOL/L (99-107); GLUCOSE 116 MG/DL (70-104); POTASSIUM 3.6 MMOL/L (3.5-5.1); SODIUM 142 MMOL/L (135-145); TOTAL CARBON DIOXIDE 27.6 MMOL/L (24-32); eGFR 59 ML/MIN
[2017-08-10] MEDS: levoTHYROXINE 112mcg tablet PO SCH (07:41)
[2017-08-10] MEDS: magnesium hydroxide 30ml (MOM) UD suspension PO SCH (07:41)
[2017-08-10] MEDS: amiodarone 200mg tablet PO SCH ×2 (07:41→19:30)
[2017-08-10] MEDS: lactobacillus rhamnosus 10,000 MMU CELLS/CAPSULE PO SCH ×2 (07:41→17:23)
[2017-08-10] MEDS: furosemide 20 MG/2 ML vial IV SCH (07:41)
[2017-08-10] MEDS: allopurinol 300 MG tablet PO SCH (07:42)
[2017-08-10] MEDS: K and/or MAG REPLACEMENT MC SCH (07:52)
[2017-08-10] MEDS: Protein Shake (high protein) 240ml (8oz) cup PO SCH ×3 (09:28→19:17)
[2017-08-10] MEDS: metoprolol tartrate 25mg tablet PO SCH (09:34)
[2017-08-10] MEDS: normal saline 1000ml 1,000 ML IV SCH (09:35)
[2017-08-10 12:36] LABS: C DIFF ANTIGEN NEGATIVE (NEGATIVE); C DIFF SPECIMEN=DIARRHEA? ACCEPTABLE; C DIFFICILE TOXINS A&B NEGATIVE (Neg)
[2017-08-10] MEDS: insulin Lispro (HumaLOG) vial - multi-dose SQ SCH (19:38)
[2017-08-10] MEDS: insulin glargine (Lantus) pen - multi-dose SQ SCH (21:36)
[2017-08-11] VITALS (24 sets, daily range): BP systolic 89–118; BP diastolic 50–75
[2017-08-11] MEDS: HYDROmorphone/NS 1 mg/ml CADD 50 ML IV SCH ×12 (01:00→23:00)
[2017-08-11] MEDS: ipratropium/albuterol 3ml nebule NEB SCH ×4 (04:08→20:31)
[2017-08-11 06:32] LABS: BASOPHILS % (AUTO) 0.3 % (0-1); EOSINOPHILS # (AUTO) 0.8 X10'3 (0-0.9); EOSINOPHILS % (AUTO) 7.9 % (0-6); HEMATOCRIT 31.3 % (42.0-52.0); HEMOGLOBIN 10.4 g/dl (14.0-17.9); LYMPHOCYTES # (AUTO) 1.9 X10'3 (1.1-4.8); LYMPHOCYTES % (AUTO) 18.8 % (21-51); MEAN CORPUSCULAR HEMOGLOBIN 31.9 PG (27.0-31.0); MEAN CORPUSCULAR HGB CONC 33.1 % (33.0-36.5); MEAN CORPUSCULAR VOLUME 96.1 FL (78-98); MEAN PLATELET VOLUME 7.9 FL (7.4-10.4); MONOCYTES # (AUTO) 0.6 X10'3 (0-0.9); MONOCYTES % (AUTO) 5.9 % (2-12); NEUTROPHILS # (AUTO) 6.8 X10'3 (1.8-7.7); NEUTROPHILS % (AUTO) 67.1 % (42-75); PLATELET COUNT 235 X10'3 (140-440); RED BLOOD COUNT 3.26 X10'6 (4.70-6.10); RED CELL DISTRIBUTION WIDTH 15.6 % (11.5-14.5); WHITE BLOOD COUNT 10.1 X10'3 (4.5-11.0)
[2017-08-11 07:00] LABS: ALBUMIN 2.1 G/DL (3.4-5.0); ANION GAP 6 (8-16); BLOOD UREA NITROGEN 27 MG/DL (7-18); BUN/CREATININE RATIO 21.6 (5.4-32.0); CALCIUM 8.5 MG/DL (8.5-10.1); CHLORIDE 107 MMOL/L (99-107); CREATININE 1.25 MG/DL (0.60-1.10); GLUCOSE 96 MG/DL (70-104); POTASSIUM 3.5 MMOL/L (3.5-5.1); SODIUM 141 MMOL/L (135-145); TOTAL CARBON DIOXIDE 27.6 MMOL/L (24-32); eGFR 56 ML/MIN
[2017-08-11] MEDS: lactobacillus rhamnosus 10,000 MMU CELLS/CAPSULE PO SCH ×2 (07:52→17:01)
[2017-08-11] MEDS: amiodarone 200mg tablet PO SCH ×2 (07:52→20:26)
[2017-08-11] MEDS: allopurinol 300 MG tablet PO SCH (07:53)
[2017-08-11] MEDS: levoTHYROXINE 112mcg tablet PO SCH (07:53)
[2017-08-11] MEDS: cefazolin 1gm/NS 100mL 100 ML IV SCH ×2 (07:57→16:51)
[2017-08-11] MEDS: Protein Shake (high protein) 240ml (8oz) cup PO SCH ×3 (08:00→18:33)
[2017-08-11] MEDS: K and/or MAG REPLACEMENT MC SCH (08:00)
[2017-08-11] MEDS: furosemide 20 MG/2 ML vial IV SCH (08:57)
[2017-08-11] MEDS: apixaban 2.5mg tablet PO SCH (20:26)
[2017-08-11] MEDS: insulin glargine (Lantus) pen - multi-dose SQ SCH (21:00)
[2017-08-12] VITALS (20 sets, daily range): BP systolic 88–168; BP diastolic 62–96
[2017-08-12] MEDS: HYDROmorphone/NS 1 mg/ml CADD 50 ML IV SCH ×4 (01:00→07:00)
[2017-08-12] MEDS: ipratropium/albuterol 3ml nebule NEB SCH ×3 (03:05→14:30)
[2017-08-12 05:27] LABS: BASOPHILS % (AUTO) 0.4 % (0-1); EOSINOPHILS # (AUTO) 0.8 X10'3 (0-0.9); EOSINOPHILS % (AUTO) 6.8 % (0-6); HEMATOCRIT 32.7 % (42.0-52.0); HEMOGLOBIN 10.9 g/dl (14.0-17.9); LYMPHOCYTES % (AUTO) 17.4 % (21-51); MEAN CORPUSCULAR HEMOGLOBIN 31.7 PG (27.0-31.0); MEAN CORPUSCULAR HGB CONC 33.3 % (33.0-36.5); MEAN CORPUSCULAR VOLUME 95.3 FL (78-98); MEAN PLATELET VOLUME 7.8 FL (7.4-10.4); MONOCYTES # (AUTO) 0.7 X10'3 (0-0.9); NEUTROPHILS # (AUTO) 7.9 X10'3 (1.8-7.7); NEUTROPHILS % (AUTO) 69.4 % (42-75); PLATELET COUNT 249 X10'3 (140-440); RED BLOOD COUNT 3.43 X10'6 (4.70-6.10); RED CELL DISTRIBUTION WIDTH 15.4 % (11.5-14.5); WHITE BLOOD COUNT 11.4 X10'3 (4.5-11.0)
[2017-08-12 05:42] LABS: ALANINE AMINOTRANSFERASE 36 U/L (12-78); ALBUMIN 2.1 G/DL (3.4-5.0); ALBUMIN/GLOBULIN RATIO 0.7 (1.1-1.5); ALKALINE PHOSPHATASE 67 IU/L (46-116); ANION GAP 8 (8-16); ASPARTATE AMINO TRANSFERASE 35 U/L (10-37); BILIRUBIN,TOTAL 0.5 MG/DL (0.1-1.0); BLOOD UREA NITROGEN 27 MG/DL (7-18); BUN/CREATININE RATIO 25.5 (5.4-32.0); CALCIUM 8.7 MG/DL (8.5-10.1); CHLORIDE 106 MMOL/L (99-107); CREATININE 1.06 MG/DL (0.60-1.10); GLUCOSE 125 MG/DL (70-104); POTASSIUM 3.6 MMOL/L (3.5-5.1); SODIUM 141 MMOL/L (135-145); TOTAL CARBON DIOXIDE 26.7 MMOL/L (24-32); TOTAL PROTEIN 5.3 G/DL (6.4-8.2); eGFR 68 ML/MIN
[2017-08-12] MEDS: Protein Shake (high protein) 240ml (8oz) cup PO SCH ×4 (08:00→19:00)
[2017-08-12] MEDS: K and/or MAG REPLACEMENT MC SCH (08:00)
[2017-08-12] MEDS: lactobacillus rhamnosus 10,000 MMU CELLS/CAPSULE PO SCH ×2 (08:03→17:41)
[2017-08-12] MEDS: amiodarone 200mg tablet PO SCH ×2 (08:03→21:19)
[2017-08-12] MEDS: furosemide 20 MG/2 ML vial IV SCH (08:03)
[2017-08-12] MEDS: levoTHYROXINE 112mcg tablet PO SCH (08:03)
[2017-08-12] MEDS: apixaban 2.5mg tablet PO SCH ×2 (08:03→20:00)
[2017-08-12] MEDS: allopurinol 300 MG tablet PO SCH (08:03)
[2017-08-12] MEDS: normal saline 1000ml 1,000 ML IV SCH (08:04)
[2017-08-12] MEDS: insulin glargine (Lantus) pen - multi-dose SQ SCH (21:00)
[2017-08-13] VITALS (7 sets, daily range): BP systolic 95–122; BP diastolic 52–72
[2017-08-13] MEDS: K and/or MAG REPLACEMENT MC SCH (08:00)
[2017-08-13] MEDS: apixaban 2.5mg tablet PO SCH ×2 (08:23→20:10)
[2017-08-13] MEDS: levoTHYROXINE 112mcg tablet PO SCH (08:23)
[2017-08-13] MEDS: lactobacillus rhamnosus 10,000 MMU CELLS/CAPSULE PO SCH ×2 (08:23→17:30)
[2017-08-13] MEDS: allopurinol 300 MG tablet PO SCH (08:23)
[2017-08-13] MEDS: furosemide 20 MG/2 ML vial IV SCH (08:23)
[2017-08-13] MEDS: amiodarone 200mg tablet PO SCH ×2 (08:23→20:10)
[2017-08-13] MEDS: Protein Shake (high protein) 240ml (8oz) cup PO SCH ×2 (13:00→18:00)
[2017-08-13] MEDS: insulin glargine (Lantus) pen - multi-dose SQ SCH (21:00)
[2017-08-14 03:00] VITALS: BP 137/48
[2017-08-14 06:00] VITALS: BP 102/68
[2017-08-14] MEDS: normal saline 1000ml 1,000 ML IV SCH (07:49)
[2017-08-14] MEDS: K and/or MAG REPLACEMENT MC SCH (08:00)
[2017-08-14] MEDS: Protein Shake (high protein) 240ml (8oz) cup PO SCH ×3 (08:16→18:53)
[2017-08-14] MEDS: furosemide 20 MG/2 ML vial IV SCH (08:16)
[2017-08-14] MEDS: allopurinol 300 MG tablet PO SCH (08:16)
[2017-08-14] MEDS: lactobacillus rhamnosus 10,000 MMU CELLS/CAPSULE PO SCH ×2 (08:16→18:57)
[2017-08-14] MEDS: levoTHYROXINE 112mcg tablet PO SCH (08:16)
[2017-08-14] MEDS: apixaban 2.5mg tablet PO SCH ×2 (08:16→20:30)
[2017-08-14] MEDS: amiodarone 200mg tablet PO SCH ×2 (08:16→20:30)
[2017-08-14 09:02] LABS: BASOPHILS % (AUTO) 0.2 % (0-1); EOSINOPHILS # (AUTO) 0.7 X10'3 (0-0.9); EOSINOPHILS % (AUTO) 5.7 % (0-6); HEMATOCRIT 36.7 % (42.0-52.0); HEMOGLOBIN 12.2 g/dl (14.0-17.9); LYMPHOCYTES # (AUTO) 1.7 X10'3 (1.1-4.8); LYMPHOCYTES % (AUTO) 13.6 % (21-51); MEAN CORPUSCULAR HGB CONC 33.3 % (33.0-36.5); MEAN CORPUSCULAR VOLUME 96.2 FL (78-98); MEAN PLATELET VOLUME 8.3 FL (7.4-10.4); MONOCYTES # (AUTO) 0.5 X10'3 (0-0.9); MONOCYTES % (AUTO) 3.9 % (2-12); NEUTROPHILS # (AUTO) 9.9 X10'3 (1.8-7.7); NEUTROPHILS % (AUTO) 76.6 % (42-75); PLATELET COUNT 288 X10'3 (140-440); RED BLOOD COUNT 3.81 X10'6 (4.70-6.10); RED CELL DISTRIBUTION WIDTH 16.2 % (11.5-14.5); WHITE BLOOD COUNT 12.9 X10'3 (4.5-11.0)
[2017-08-14 09:17] LABS: ALBUMIN 2.5 G/DL (3.4-5.0); ANION GAP 8 (8-16); BLOOD UREA NITROGEN 25 MG/DL (7-18); BUN/CREATININE RATIO 20.8 (5.4-32.0); CALCIUM 9.1 MG/DL (8.5-10.1); CHLORIDE 103 MMOL/L (99-107); GLUCOSE 202 MG/DL (70-104); POTASSIUM 4.2 MMOL/L (3.5-5.1); SODIUM 141 MMOL/L (135-145); TOTAL CARBON DIOXIDE 29.8 MMOL/L (24-32); eGFR 59 ML/MIN
[2017-08-14 11:00] VITALS: BP 122/78
[2017-08-14 15:00] VITALS: BP 103/62
[2017-08-14 18:00] VITALS: BP 117/75
[2017-08-14] MEDS: insulin glargine (Lantus) pen - multi-dose SQ SCH (20:27)
[2017-08-15 02:00] VITALS: BP 126/74
[2017-08-15 06:00] VITALS: BP 99/66
[2017-08-15] MEDS: lactobacillus rhamnosus 10,000 MMU CELLS/CAPSULE PO SCH ×2 (07:32→17:18)
[2017-08-15] MEDS: furosemide 20 MG/2 ML vial IV SCH (07:34)
[2017-08-15] MEDS: apixaban 2.5mg tablet PO SCH ×2 (07:34→19:18)
[2017-08-15] MEDS: allopurinol 300 MG tablet PO SCH (07:35)
[2017-08-15] MEDS: amiodarone 200mg tablet PO SCH ×2 (07:35→19:19)
[2017-08-15] MEDS: levoTHYROXINE 112mcg tablet PO SCH (07:40)
[2017-08-15] MEDS: K and/or MAG REPLACEMENT MC SCH (08:00)
[2017-08-15] MEDS: Protein Shake (high protein) 240ml (8oz) cup PO SCH ×4 (08:19→19:17)
[2017-08-15 11:00] VITALS: BP 110/62
[2017-08-15] MEDS: magnesium hydroxide 30ml (MOM) UD suspension PO PRN (14:55)
[2017-08-15 15:00] VITALS: BP 115/65
[2017-08-15 18:00] VITALS: BP 111/72
[2017-08-15] MEDS: insulin glargine (Lantus) pen - multi-dose SQ SCH (21:00)
[2017-08-15 22:00] VITALS: BP 105/66
[2017-08-16 02:00] VITALS: BP 104/69
[2017-08-16 06:24] LABS: BASOPHILS # (AUTO) 0.1 X10'3 (0-0.2); BASOPHILS % (AUTO) 0.8 % (0-1); EOSINOPHILS # (AUTO) 0.9 X10'3 (0-0.9); HEMATOCRIT 34.7 % (42.0-52.0); HEMOGLOBIN 11.5 g/dl (14.0-17.9); LYMPHOCYTES # (AUTO) 2.4 X10'3 (1.1-4.8); LYMPHOCYTES % (AUTO) 21.9 % (21-51); MEAN CORPUSCULAR HEMOGLOBIN 31.6 PG (27.0-31.0); MEAN CORPUSCULAR HGB CONC 33.1 % (33.0-36.5); MEAN CORPUSCULAR VOLUME 95.3 FL (78-98); MEAN PLATELET VOLUME 8.5 FL (7.4-10.4); MONOCYTES # (AUTO) 0.7 X10'3 (0-0.9); MONOCYTES % (AUTO) 6.1 % (2-12); NEUTROPHILS % (AUTO) 63.2 % (42-75); PLATELET COUNT 270 X10'3 (140-440); RED BLOOD COUNT 3.64 X10'6 (4.70-6.10); RED CELL DISTRIBUTION WIDTH 16.1 % (11.5-14.5); WHITE BLOOD COUNT 11.1 X10'3 (4.5-11.0)
[2017-08-16 06:35] VITALS: BP 115/74
[2017-08-16 06:54] LABS: ALBUMIN 2.4 G/DL (3.4-5.0); ANION GAP 5 (8-16); BLOOD UREA NITROGEN 26 MG/DL (7-18); BUN/CREATININE RATIO 21.5 (5.4-32.0); CALCIUM 9.1 MG/DL (8.5-10.1); CHLORIDE 104 MMOL/L (99-107); CREATININE 1.21 MG/DL (0.60-1.10); GLUCOSE 133 MG/DL (70-104); SODIUM 140 MMOL/L (135-145); TOTAL CARBON DIOXIDE 31.3 MMOL/L (24-32); eGFR 58 ML/MIN
[2017-08-16] MEDS: K and/or MAG REPLACEMENT MC SCH (08:00)
[2017-08-16] MEDS: furosemide 20 MG/2 ML vial IV SCH (08:27)
[2017-08-16] MEDS: apixaban 2.5mg tablet PO SCH (08:27)
[2017-08-16] MEDS: allopurinol 300 MG tablet PO SCH (08:28)
[2017-08-16] MEDS: amiodarone 200mg tablet PO SCH (08:28)
[2017-08-16] MEDS: levoTHYROXINE 112mcg tablet PO SCH (08:28)
[2017-08-16] MEDS: lactobacillus rhamnosus 10,000 MMU CELLS/CAPSULE PO SCH (08:28)
[2017-08-16 11:00] VITALS: BP 99/59
[2017-08-16] MEDS ORDERED: FURO-149 PO (15:28)
[2017-08-16] MEDS ORDERED: AMIO200T57 PO (16:33)
[2017-08-16] MEDS ORDERED: METO-395 PO (17:00)
[2017-08-17] MEDS ORDERED: metoprolol succinate 25mg (24-HOUR) SR. Tablet PO SCH (08:00)
== END 2017-08-16 17:40 | disposition home health service (06) | DRG 853 ==
LOC: ER 15:59 → ED HOLD 17:53 → EDBEDREQ 07-30 05:50 → PCU 3S 07-30 08:11 → CICU 2S 08-04 13:09 → PCU 3S 08-12 17:00
PROVIDERS: ADMIT Internal Medicine; ATTEND Internal Medicine
PROC: 0W9B3ZZ Drainage of Left Pleural Cavity, Percutaneous Approach (ICD-10-PCS; 2017-07-31)
PROC: 0W993ZZ Drainage of Right Pleural Cavity, Percutaneous Approach (ICD-10-PCS; 2017-07-31)
PROC: 0BNG0ZZ Release Left Upper Lung Lobe, Open Approach (ICD-10-PCS; 2017-08-04)
PROC: 0B5N0ZZ Destruction of Right Pleura, Open Approach (ICD-10-PCS; 2017-08-04)
PROC: 5A1935Z Respiratory Ventilation, Less than 24 Consecutive Hours (ICD-10-PCS; 2017-08-04)
PROC: 0BBN0ZX Excision of Right Pleura, Open Approach, Diagnostic (ICD-10-PCS; 2017-08-04)
PROC: 0BBP0ZX Excision of Left Pleura, Open Approach, Diagnostic (ICD-10-PCS; 2017-08-04)
PROC: 0W9B00Z Drainage of Left Pleural Cavity with Drainage Device, Open Approach (ICD-10-PCS; 2017-08-04)
PROC: 0W9900Z Drainage of Right Pleural Cavity with Drainage Device, Open Approach (ICD-10-PCS; 2017-08-04)
PROC: 0B5P0ZZ Destruction of Left Pleura, Open Approach (ICD-10-PCS; principal; 2017-08-04 07:46)
DX: A41.9 Sepsis, unspecified organism (principal); I50.21 Acute systolic (congestive) heart failure; J96.01 Acute respiratory failure with hypoxia; N17.9 Acute kidney failure, unspecified; J90 Pleural effusion, not elsewhere classified; C91.10 Chronic lymphocytic leukemia of B-cell type not having achieved remission; I13.0 Hypertensive heart and chronic kidney disease with heart failure and stage 1 through stage 4 chronic kidney disease, or unspecified chronic kidney disease; E11.22 Type 2 diabetes mellitus with diabetic chronic kidney disease; I35.0 Nonrheumatic aortic (valve) stenosis; N18.3 Chronic kidney disease, stage 3 (moderate); M1A.9XX0 Chronic gout, unspecified, without tophus (tophi); E03.9 Hypothyroidism, unspecified; I25.10 Atherosclerotic heart disease of native coronary artery without angina pectoris; I48.2 Chronic atrial fibrillation; Z88.1 Allergy status to other antibiotic agents; Z79.899 Other long term (current) drug therapy; Z79.01 Long term (current) use of anticoagulants; Z87.01 Personal history of pneumonia (recurrent)
CPT/HCPCS: 32555; 36415; 36600; 71045; 71250; 80048; 80053; 80162; 81001; 82550; 82803; 82948; 83036; 83605; 83615; 83690; 83735; 83880; 84145; 84443; 84484; 85018; 85025; 85610; 85651; 85730; 86140; 86885; 86900; 86901; 86920; 87040; 87070; 87088; 87324; 87449; 93005; 93306; 94002; 94003; 94640; 94668; 94760; 96365; 96375; 97110; 97116; 97162; 97530; 99285; A4649; A6209; A6212; A6213; A6222; A6223; A6251; A6257; A6258; A6449; A7000; A7048; C1758; C9250; J0456; J0690; J0692; J0696; J1160; J1170; J1815; J1940; J2001; J2175; J2250; J2405; J2543; J2704; J3010; J3370; J3490; J7030; J7120; J8597; P9045; P9047

== ENCOUNTER 2019-05-23 09:35 | Outpatient (CLI) | payer MEDICARE, OTHER ==
[~2019-05-23 09:35] MED LIST changes: -ATEN-169 PO; +FURO-149 PO; -LISI-600 PO; +METO-395 PO
[2019-05-23] MEDS ORDERED: silver sulfadiazine cream 50gm TP ONE (11:03)
== END 2019-05-23 11:12 | disposition home or self-care (01) ==
LOC: WOUND CARE 09:35 → EDSTATUS 10:00 → WOUND CARE 11:12
PROVIDERS: ATTEND Surgery
DX: L03.115 Cellulitis of right lower limb (principal); L03.116 Cellulitis of left lower limb; E11.22 Type 2 diabetes mellitus with diabetic chronic kidney disease; I13.0 Hypertensive heart and chronic kidney disease with heart failure and stage 1 through stage 4 chronic kidney disease, or unspecified chronic kidney disease; I50.20 Unspecified systolic (congestive) heart failure; N18.3 Chronic kidney disease, stage 3 (moderate); N40.0 Benign prostatic hyperplasia without lower urinary tract symptoms; I25.10 Atherosclerotic heart disease of native coronary artery without angina pectoris; I48.20 Chronic atrial fibrillation, unspecified; M1A.9XX0 Chronic gout, unspecified, without tophus (tophi); C91.10 Chronic lymphocytic leukemia of B-cell type not having achieved remission; E03.9 Hypothyroidism, unspecified; E43 Unspecified severe protein-calorie malnutrition; Z79.4 Long term (current) use of insulin; Z98.890 Other specified postprocedural states; Z68.37 Body mass index [BMI] 37.0-37.9, adult; Z79.01 Long term (current) use of anticoagulants; Z79.899 Other long term (current) drug therapy; Z87.01 Personal history of pneumonia (recurrent)
CPT/HCPCS: A4663; G0463

== ENCOUNTER 2019-05-30 09:25 | Outpatient (CLI) | payer MEDICARE, OTHER ==
[2019-05-30] MEDS ORDERED: silver sulfadiazine cream 50gm TP ONE (11:27)
== END 2019-05-30 12:51 | disposition home or self-care (01) ==
LOC: WOUND CARE 09:25 → EDSTATUS 10:00 → WOUND CARE 12:51
PROVIDERS: ATTEND Surgery
DX: L03.115 Cellulitis of right lower limb (principal); L03.116 Cellulitis of left lower limb; I83.11 Varicose veins of right lower extremity with inflammation; I83.12 Varicose veins of left lower extremity with inflammation; E11.22 Type 2 diabetes mellitus with diabetic chronic kidney disease; I13.0 Hypertensive heart and chronic kidney disease with heart failure and stage 1 through stage 4 chronic kidney disease, or unspecified chronic kidney disease; I50.20 Unspecified systolic (congestive) heart failure; N18.3 Chronic kidney disease, stage 3 (moderate); N40.0 Benign prostatic hyperplasia without lower urinary tract symptoms; I25.10 Atherosclerotic heart disease of native coronary artery without angina pectoris; I48.20 Chronic atrial fibrillation, unspecified; M1A.9XX0 Chronic gout, unspecified, without tophus (tophi); C91.10 Chronic lymphocytic leukemia of B-cell type not having achieved remission; E03.9 Hypothyroidism, unspecified; E43 Unspecified severe protein-calorie malnutrition; Z79.4 Long term (current) use of insulin; Z98.890 Other specified postprocedural states; Z68.37 Body mass index [BMI] 37.0-37.9, adult; Z79.01 Long term (current) use of anticoagulants; Z79.899 Other long term (current) drug therapy; Z87.01 Personal history of pneumonia (recurrent)
CPT/HCPCS: 36416; 82948; 93970; G0463; A4663; A6446

== ENCOUNTER 2019-06-06 09:30 | Outpatient (CLI) | payer MEDICARE, OTHER | END 2019-06-06 11:51 | disposition home or self-care (01) | LOC: WOUND CARE 09:30 → EDSTATUS 10:00 → WOUND CARE 11:51 | PROVIDERS: ATTEND Surgery | DX: L03.115 Cellulitis of right lower limb (principal); L03.116 Cellulitis of left lower limb; I83.11 Varicose veins of right lower extremity with inflammation; I83.12 Varicose veins of left lower extremity with inflammation; E11.22 Type 2 diabetes mellitus with diabetic chronic kidney disease; I13.0 Hypertensive heart and chronic kidney disease with heart failure and stage 1 through stage 4 chronic kidney disease, or unspecified chronic kidney disease; I50.20 Unspecified systolic (congestive) heart failure; N18.3 Chronic kidney disease, stage 3 (moderate); N40.0 Benign prostatic hyperplasia without lower urinary tract symptoms; I25.10 Atherosclerotic heart disease of native coronary artery without angina pectoris; I48.20 Chronic atrial fibrillation, unspecified; M1A.9XX0 Chronic gout, unspecified, without tophus (tophi); C91.10 Chronic lymphocytic leukemia of B-cell type not having achieved remission; E03.9 Hypothyroidism, unspecified; E43 Unspecified severe protein-calorie malnutrition; Z79.4 Long term (current) use of insulin; Z98.890 Other specified postprocedural states; Z68.37 Body mass index [BMI] 37.0-37.9, adult; Z79.01 Long term (current) use of anticoagulants; Z79.899 Other long term (current) drug therapy; Z87.01 Personal history of pneumonia (recurrent) | CPT/HCPCS: A4663; G0463 ==

== ENCOUNTER 2020-04-26 08:45 | Day surgery (SDC) | payer MEDICARE, OTHER ==
[2020-04-26] VITALS (15 sets, daily range): BP systolic 134–176; BP diastolic 77–93
[~2020-04-26] VITALS: Ht 185.4 cm; Wt 106.0 kg
[2020-04-26] MEDS ORDERED: FURO20TA4 PO (09:14)
[2020-04-26] MEDS ORDERED: LEVO112T72 PO (09:14)
[2020-04-26] MEDS ORDERED: LOSA25TA96 PO (09:14)
[2020-04-26] MEDS ORDERED: LACT1CAP65 PO (09:19)
[2020-04-26] MEDS ORDERED: CHOL400T8 PO (09:19)
[2020-04-26] MEDS ORDERED: ASCO500C17 PO (09:19)
[2020-04-26] MEDS ORDERED: FOLI0.4T14 PO (09:19)
[2020-04-26] MEDS ORDERED: UBID50TA3 PO (09:19)
[2020-04-26] MEDS ORDERED: CYAN250010 PO (09:19)
[2020-04-26] MEDS ORDERED: DOBUTamine-DoBUTrex 500mg/D5W 250 ML IV SCH (09:25)
[2020-04-26 09:43] LABS: HEMOGLOBIN 13.2 g/dl (14.0-17.9); MONOCYTES # (AUTO) 0.4 X10'3 (0-0.9)
[2020-04-26 09:44] LABS: BASOPHILS # (AUTO) 0.1 X10'3 (0-0.2); BASOPHILS % (AUTO) 1.3 % (0-1); EOSINOPHILS # (AUTO) 0.3 X10'3 (0-0.9); EOSINOPHILS % (AUTO) 4.4 % (0-6); HEMATOCRIT 39.8 % (42.0-52.0); LYMPHOCYTES # (AUTO) 1.7 X10'3 (1.1-4.8); LYMPHOCYTES % (AUTO) 28.2 % (21-51); MEAN CORPUSCULAR HEMOGLOBIN 33.8 PG (27.0-31.0); MEAN CORPUSCULAR HGB CONC 33.1 g/dL (33.0-36.5); MEAN PLATELET VOLUME 9.4 FL (7.4-10.4); MONOCYTES % (AUTO) 7.4 % (2-12); NEUTROPHILS # (AUTO) 3.5 X10'3 (1.8-7.7); NEUTROPHILS % (AUTO) 58.7 % (42-75); PLATELET COUNT 98 X10'3 (140-440); RED CELL DISTRIBUTION WIDTH 17.6 % (11.5-14.5)
[2020-04-26 09:52] LABS: PARTIAL THROMBOPLASTIN TIME 32 SECONDS (22-32)
[2020-04-26 10:00] LABS: ALANINE AMINOTRANSFERASE 17 U/L (12-78); ALBUMIN 3.6 G/DL (3.4-5.0); ALBUMIN/GLOBULIN RATIO 1.1 (1.1-1.5); ALKALINE PHOSPHATASE 67 IU/L (46-116); ANION GAP 5 (8-16); ASPARTATE AMINO TRANSFERASE 17 U/L (10-37); BILIRUBIN,TOTAL 0.7 MG/DL (0.1-1.0); BLOOD UREA NITROGEN 25 MG/DL (7-18); CALCIUM 9.1 MG/DL (8.5-10.1); CHLORIDE 108 MMOL/L (99-107); CREATININE 1.67 MG/DL (0.60-1.10); GLUCOSE 128 MG/DL (70-104); POTASSIUM 3.8 MMOL/L (3.5-5.1); SODIUM 140 MMOL/L (135-145); TOTAL CARBON DIOXIDE 26.6 MMOL/L (24-32); TOTAL PROTEIN 6.9 G/DL (6.4-8.2); eGFR 40 ML/MIN
[2020-04-26 10:21] LABS: ANISOCYTOSIS 1+; LARGE PLATELETS FEW; PLATELET ESTIMATE DECREASED
[2020-04-26] MEDS ORDERED: iohexol 350 MG/ML 50ML vial IV ONE (12:35)
[2020-04-26] MEDS ORDERED: iohexol 350MG/ML 100ml bottle IV ONE (12:36)
[2020-04-26] MEDS ORDERED: IBRU280T PO (17:54)
== END 2020-04-26 13:20 | disposition home or self-care (01) ==
LOC: SSTAY O 08:45
PROVIDERS: ATTEND Internal Medicine Cardiovascular Disease
DX: I35.0 Nonrheumatic aortic (valve) stenosis (principal); R06.02 Shortness of breath; I65.23 Occlusion and stenosis of bilateral carotid arteries; J43.8 Other emphysema; J90 Pleural effusion, not elsewhere classified; J98.11 Atelectasis; I70.0 Atherosclerosis of aorta; I70.1 Atherosclerosis of renal artery; I48.91 Unspecified atrial fibrillation; E11.22 Type 2 diabetes mellitus with diabetic chronic kidney disease; I13.0 Hypertensive heart and chronic kidney disease with heart failure and stage 1 through stage 4 chronic kidney disease, or unspecified chronic kidney disease; N18.30 Chronic kidney disease, stage 3 unspecified; I50.32 Chronic diastolic (congestive) heart failure; Z85.6 Personal history of leukemia; M10.9 Gout, unspecified; E03.9 Hypothyroidism, unspecified; I27.20 Pulmonary hypertension, unspecified; Z88.8 Allergy status to other drugs, medicaments and biological substances; Z79.01 Long term (current) use of anticoagulants; Z79.899 Other long term (current) drug therapy
CPT/HCPCS: 36415; 71045; 71275; 74174; 80053; 85025; 85610; 85730; 93005; 93350; 93880; J1250; Q9967; 85008

== ENCOUNTER 2020-05-08 15:14 | Day surgery (SDC) | payer MEDICARE, OTHER ==
[2020-05-03 10:57] LABS: BASOPHILS # (AUTO) 0.1 X10'3 (0-0.2); EOSINOPHILS # (AUTO) 0.3 X10'3 (0-0.9); HEMOGLOBIN 13.7 g/dl (14.0-17.9); LYMPHOCYTES # (AUTO) 1.9 X10'3 (1.1-4.8); MONOCYTES # (AUTO) 0.5 X10'3 (0-0.9)
[2020-05-03 10:58] LABS: BASOPHILS % (AUTO) 1.1 % (0-1); EOSINOPHILS % (AUTO) 4.2 % (0-6); HEMATOCRIT 41.6 % (42.0-52.0); LYMPHOCYTES % (AUTO) 27.7 % (21-51); MEAN CORPUSCULAR HEMOGLOBIN 33.8 PG (27.0-31.0); MEAN CORPUSCULAR HGB CONC 32.9 g/dL (33.0-36.5); MEAN CORPUSCULAR VOLUME 102.9 FL (78-98); MEAN PLATELET VOLUME 11.3 FL (7.4-10.4); MONOCYTES % (AUTO) 7.4 % (2-12); NEUTROPHILS # (AUTO) 4.1 X10'3 (1.8-7.7); NEUTROPHILS % (AUTO) 59.6 % (42-75); PLATELET COUNT 116 X10'3 (140-440); RED BLOOD COUNT 4.04 X10'6 (4.70-6.10); RED CELL DISTRIBUTION WIDTH 17.7 % (11.5-14.5); WHITE BLOOD COUNT 6.9 X10'3 (4.5-11.0)
[2020-05-03 11:08] LABS: PARTIAL THROMBOPLASTIN TIME 32 SECONDS (22-32)
[2020-05-03 11:11] LABS: ALBUMIN 3.8 G/DL (3.4-5.0); ANION GAP 9 (8-16); BLOOD UREA NITROGEN 26 MG/DL (7-18); BUN/CREATININE RATIO 15.3 (5.4-32.0); CALCIUM 9.1 MG/DL (8.5-10.1); CHLORIDE 104 MMOL/L (99-107); GLUCOSE 120 MG/DL (70-104); POTASSIUM 4.2 MMOL/L (3.5-5.1); SODIUM 141 MMOL/L (135-145); TOTAL CARBON DIOXIDE 28.5 MMOL/L (24-32); eGFR 39 ML/MIN
[2020-05-03 11:33] LABS: ANISOCYTOSIS 1+; PLATELET ESTIMATE DECREASED
[2020-05-03 11:34] LABS: ELLIPTOCYTES FEW; SCHISTOCYTES FEW
[2020-05-03 11:35] LABS: GIANT PLATELET FEW; LARGE PLATELETS FEW
[2020-05-08] VITALS (8 sets, daily range): BP systolic 142–161; BP diastolic 86–113
[~2020-05-08] VITALS: Ht 182.9 cm; Wt 107.1 kg
[~2020-05-08 15:14] MED LIST changes: +ASCO500C17 PO; +CHOL400T8 PO; +CYAN250010 PO; +FOLI0.4T14 PO; -FURO-149 PO; +FURO20TA4 PO; -IBRU140C PO; +IBRU280T PO; +LACT1CAP65 PO; -LEVO112T52 PO; +LEVO112T72 PO; +LOSA25TA96 PO; +UBID50TA3 PO
[2020-05-08] MEDS ORDERED: UBID100C16 PO (15:47)
[2020-05-08] MEDS ORDERED: APIX5TAB3 PO (15:47)
[2020-05-08] MEDS ORDERED: OMEG-79 PO (15:47)
[2020-05-08] MEDS ORDERED: normal saline 1,000 ML IV SCH (16:00)
[2020-05-08] MEDS ORDERED: LIDOcaine/PRILOcaine 5gm cream TP ONE (16:00)
[2020-05-08] MEDS ORDERED: LORazepam 0.5 MG tablet PO PRN (16:00)
[2020-05-08] MEDS ORDERED: diphenhydrAMINE 25mg capsule PO PRN (16:00)
[2020-05-08] MEDS ORDERED: iohexol 350 MG/ML 50ML vial IV ONE ×2 (17:57→18:06)
[2020-05-08] MEDS ORDERED: HYDROcodone/acetaminophen 10/325mg tab PO PRN (18:40)
[2020-05-08] MEDS ORDERED: OXAZEpam 15mg capsule PO PRN (18:40)
[2020-05-08] MEDS ORDERED: proCHLORperazine 10 MG/2 ml inj IV PRN (18:40)
[2020-05-08] MEDS ORDERED: HYDROcodone/acetaminophen 5mg/325mg tablet PO PRN (18:40)
[2020-05-08] MEDS ORDERED: ondansetron/PF 4mg/2ml inj IV PRN (18:40)
[2020-05-08] MEDS ORDERED: nitroGLYCERIN 0.4mg SUBLingual tab SL PRN (18:40)
--- NOTE | 2020-05-08 19:58 | NUR ---
Student IV catheter insertion: 18g. IV successfully inserted in L wrist by Bella Meredith-Student Nurse under my supervision.
== END 2020-05-08 21:00 | disposition home or self-care (01) ==
LOC: SSTAY O 15:14
PROVIDERS: ATTEND Student in an Organized Health Care Education/Training Program
DX: Z00.6 Encounter for examination for normal comparison and control in clinical research program (principal); I35.0 Nonrheumatic aortic (valve) stenosis; I25.10 Atherosclerotic heart disease of native coronary artery without angina pectoris; I10 Essential (primary) hypertension; E78.5 Hyperlipidemia, unspecified; Z79.899 Other long term (current) drug therapy
CPT/HCPCS: 36415; 80048; 85025; 85610; 85730; 93005; 93454; J7030; Q0163; Q9967; 85008; 99152; 99153

== ENCOUNTER 2020-05-09 10:24 | Outpatient (CLI) | payer MEDICARE, OTHER ==
[~2020-05-09] VITALS: Ht 182.9 cm; Wt 107.0 kg
[~2020-05-09 10:24] MED LIST changes: +LIDOcaine 1% (10mg/ml)w/preservative injection 20ml MDV ONE; +OMEG-79 PO; +UBID100C16 PO; +fentaNYL/PF 50MCG/1 ML 2ML syringe ONE; +heparin 1,000unit/ml 10ml vial 10 ML ONE; +iohexol 350MG/ML 100ml bottle IV ONE; +midazolam 2 mg/2 ml injection ONE; +nitroGLYCERIN-Tridil 50MG/D5W 250 ML IV ONE; +verapamil 2.5 mg/ml inj IV ONE
[2020-05-09] MEDS ORDERED: albuterol 2.5 MG/3 ML nebule NEB ONE (11:00)
== END 2020-05-09 23:59 | disposition home or self-care (01) ==
LOC: RT 10:24
PROVIDERS: ATTEND Internal Medicine Cardiovascular Disease
DX: R94.2 Abnormal results of pulmonary function studies (principal); I35.0 Nonrheumatic aortic (valve) stenosis; R06.02 Shortness of breath; I65.29 Occlusion and stenosis of unspecified carotid artery
CPT/HCPCS: 94060; 94727; 94729; 94760; J1644; J2001; J2250; J3010; Q9967; J3490

== ENCOUNTER 2021-01-15 08:31 | Day surgery (SDC) | payer MEDICARE, OTHER ==
[~2021-01-15] VITALS: Ht 182.9 cm; Wt 104.0 kg
[2021-01-15] VITALS (8 sets, daily range): BP systolic 110–142; BP diastolic 63–102
[~2021-01-15 08:31] MED LIST changes: -LIDOcaine 1% (10mg/ml)w/preservative injection 20ml MDV ONE; -fentaNYL/PF 50MCG/1 ML 2ML syringe ONE; -heparin 1,000unit/ml 10ml vial 10 ML ONE; -iohexol 350MG/ML 100ml bottle IV ONE; -midazolam 2 mg/2 ml injection ONE; -nitroGLYCERIN-Tridil 50MG/D5W 250 ML IV ONE; -verapamil 2.5 mg/ml inj IV ONE
[2021-01-15] MEDS ORDERED: albumin 25% 100mL bottle x 1 IV PRN (09:10)
[2021-01-15] MEDS ORDERED: FURO40TA4 PO (09:20)
--- NOTE | 2021-01-15 09:37 | NUR ---
PA at bedside.
== END 2021-01-15 11:10 | disposition home or self-care (01) ==
LOC: SSTAY O 08:31
PROVIDERS: ATTEND Radiology Vascular & Interventional Radiology
DX: J90 Pleural effusion, not elsewhere classified (principal); I35.0 Nonrheumatic aortic (valve) stenosis; I48.91 Unspecified atrial fibrillation; I10 Essential (primary) hypertension; Z79.01 Long term (current) use of anticoagulants; Z79.899 Other long term (current) drug therapy; Z88.1 Allergy status to other antibiotic agents; Z85.6 Personal history of leukemia
CPT/HCPCS: 32555

== ENCOUNTER 2021-04-26 08:02 | Day surgery (SDC) | payer MEDICARE, OTHER ==
[~2021-04-26] VITALS: Ht 182.9 cm; Wt 113.0 kg
[~2021-04-26 08:02] MED LIST changes: -FURO20TA4 PO; +FURO40TA4 PO; -LOSA25TA96 PO
[2021-04-26 08:24] VITALS: BP 116/64
[2021-04-26] MEDS ORDERED: normal saline 1000ml 1,000 ML IV PRN (08:35)
[2021-04-26] MEDS ORDERED: albumin 25% 100mL bottle x 1 IV PRN (08:35)
[2021-04-26] MEDS ORDERED: ALLOPURINOL 300 MG PO (08:40)
[2021-04-26] MEDS ORDERED: LIDOcaine 1% 30ml preserv. free vial SQ STA (09:35)
[2021-04-26 09:53] VITALS: BP 104/65
[2021-04-26 10:00] VITALS: BP 104/59
[2021-04-26 10:15] VITALS: BP 100/54
[2021-04-26 10:30] VITALS: BP 101/55
== END 2021-04-26 10:50 | disposition home or self-care (01) ==
LOC: SSTAY O 08:02
PROVIDERS: ATTEND Radiology Vascular & Interventional Radiology
DX: J90 Pleural effusion, not elsewhere classified (principal); I35.0 Nonrheumatic aortic (valve) stenosis; I48.91 Unspecified atrial fibrillation; I10 Essential (primary) hypertension; Z88.1 Allergy status to other antibiotic agents; Z79.01 Long term (current) use of anticoagulants; Z98.890 Other specified postprocedural states; Z79.899 Other long term (current) drug therapy; Z20.822 Contact with and (suspected) exposure to COVID-19; Z85.6 Personal history of leukemia
CPT/HCPCS: 32555; 87635; C9803

== ENCOUNTER 2021-05-21 06:33 | Day surgery (SDC) | payer MEDICARE, OTHER ==
[~2021-05-21] VITALS: Ht 188 cm; Wt 114.0 kg
[~2021-05-21 06:33] MED LIST changes: -ALLO100T PO; +ALLOPURINOL 300 MG PO
[2021-05-21] MEDS ORDERED: albumin 25% 100mL bottle x 1 IV PRN (07:00)
[2021-05-21] MEDS ORDERED: normal saline 1000ml 1,000 ML IV PRN (07:00)
[2021-05-21 07:05] VITALS: BP 118/67
[2021-05-21] MEDS ORDERED: LIDOcaine 1% 30ml preserv. free vial SQ STA ×2 (07:12→07:33)
[2021-05-21] MEDS ORDERED: METO50TA7 PO (07:18)
[2021-05-21 09:05] VITALS: BP 107/59
[2021-05-21 09:15] VITALS: BP 107/59
[2021-05-21 09:30] VITALS: BP 111/65
[2021-05-21 09:45] VITALS: BP 107/59
== END 2021-05-21 09:55 | disposition home or self-care (01) ==
LOC: SSTAY O 06:33
PROVIDERS: ATTEND Radiology Vascular & Interventional Radiology
DX: J90 Pleural effusion, not elsewhere classified (principal); I35.0 Nonrheumatic aortic (valve) stenosis; I48.91 Unspecified atrial fibrillation; I10 Essential (primary) hypertension; Z79.01 Long term (current) use of anticoagulants; Z20.822 Contact with and (suspected) exposure to COVID-19; Z85.6 Personal history of leukemia; Z98.890 Other specified postprocedural states; Z88.8 Allergy status to other drugs, medicaments and biological substances
CPT/HCPCS: 32555; 87635; C9803

== ENCOUNTER 2021-08-23 09:02 | Inpatient (IN) | payer MEDICARE, OTHER ==
[~2021-08-23] VITALS: Ht 182.9 cm; Wt 104.5 kg
[~2021-08-23 09:02] MED LIST changes: -METO-395 PO; +METO50TA7 PO; -UBID100C16 PO; +ZAR5T PO
--- NOTE | 2021-08-23 11:14 | NUR ---
Pt to bedside commode. voided large amount clear yellow urine. desaturated with exertion into the 80s. resolved after several minutes in bed >93/94%
--- NOTE | 2021-08-23 11:49 | NUR ---
Pt sleeping, no apparent distress or needs at this time
[2021-08-23 12:13] LABS: BASOPHILS % (AUTO) 0.8 % (0-1); EOSINOPHILS # (AUTO) 0.1 X10'3 (0-0.9); EOSINOPHILS % (AUTO) 1.6 % (0-6); HEMATOCRIT 32.9 % (42.0-52.0); HEMOGLOBIN 10.4 g/dl (14.0-17.9); LYMPHOCYTES # (AUTO) 0.7 X10'3 (1.1-4.8); LYMPHOCYTES % (AUTO) 13.7 % (21-51); MEAN CORPUSCULAR HEMOGLOBIN 31.8 PG (27.0-31.0); MEAN CORPUSCULAR HGB CONC 31.7 g/dL (33.0-36.5); MEAN CORPUSCULAR VOLUME 100.2 FL (78-98); MEAN PLATELET VOLUME 9.1 FL (7.4-10.4); MONOCYTES # (AUTO) 0.5 X10'3 (0-0.9); MONOCYTES % (AUTO) 9.6 % (2-12); NEUTROPHILS # (AUTO) 3.8 X10'3 (1.8-7.7); NEUTROPHILS % (AUTO) 74.3 % (42-75); PLATELET COUNT 140 X10'3 (140-440); RED BLOOD COUNT 3.28 X10'6 (4.70-6.10); RED CELL DISTRIBUTION WIDTH 22.9 % (11.5-14.5); WHITE BLOOD COUNT 5.2 X10'3 (4.5-11.0)
[2021-08-23 12:34] LABS: ALANINE AMINOTRANSFERASE 34 U/L (12-78); ALBUMIN 2.8 G/DL (3.4-5.0); ALBUMIN/GLOBULIN RATIO 0.8 (1.1-1.5); ALKALINE PHOSPHATASE 156 IU/L (46-116); ANION GAP 9 (8-16); ASPARTATE AMINO TRANSFERASE 27 U/L (10-37); BILIRUBIN,TOTAL 0.7 MG/DL (0.1-1.0); BLOOD UREA NITROGEN 39 MG/DL (7-18); BUN/CREATININE RATIO 20.5 (5.4-32.0); CHLORIDE 109 MMOL/L (99-107); GLUCOSE 105 MG/DL (70-104); POTASSIUM 3.8 MMOL/L (3.5-5.1); SODIUM 145 MMOL/L (135-145); TOTAL CARBON DIOXIDE 27.2 MMOL/L (24-32); TOTAL PROTEIN 6.2 G/DL (6.4-8.2); eGFR 34 ML/MIN
[2021-08-23 13:04] LABS: ANISOCYTOSIS 3+; PLATELET ESTIMATE NORMAL; SCHISTOCYTES FEW
[2021-08-23] MEDS ORDERED: potassium Cl 20 mEq SR tablet PO PRN (14:05)
[2021-08-23] MEDS ORDERED: ondansetron/PF 4mg/2ml inj IV PRN (14:05)
[2021-08-23] MEDS ORDERED: mag hydrox/Alum hydrox/simeth 30ml oral suspension PO PRN (14:05)
[2021-08-23] MEDS ORDERED: magnesium Cl slow-release 64mg tablet PO PRN (14:05)
[2021-08-23] MEDS ORDERED: acetaminophen 325mg tablet PO PRN (14:05)
[2021-08-23] MEDS ORDERED: magnesium hydroxide 30ml (MOM) UD suspension PO PRN (14:05)
[2021-08-23] MEDS ORDERED: potassium CL 10mEq/100ml bag 100 ML IV PRN (14:05)
[2021-08-23] MEDS ORDERED: magnesium 2GM in 50ml NS 50 ML IV PRN (14:05)
[2021-08-23] MEDS ORDERED: magnesium 4gm in 100ml NS 100 ML IV PRN (14:05)
[2021-08-23] MEDS ORDERED: furosemide 10 MG/1 ML 10ml inj IV ONE (14:10)
--- NOTE | 2021-08-23 14:15 | NUR ---
Pt's called and wanted to let the physician know that the pt just finished a 7 day course of Keflex 500mg bid this morning (08/23/21)
[2021-08-23 14:31] LABS: MAGNESIUM 2.2 MG/DL (1.5-2.4)
--- NOTE | 2021-08-23 15:39 | NUR ---
Administered 60mg Lasix per MD order IV
--- NOTE | 2021-08-23 16:56 | NUR ---
Attempted to call report. Nurse in doing dressing change. Will call back in 10min. ([phone])
--- NOTE | 2021-08-23 17:50 | NUR ---
Vitals 96 ax, HR 64, 95 RA, Resp 23, BP 140/82
--- NOTE | 2021-08-23 17:50 | NUR ---
Report received from [facility] nurse. Patient arrived to unit via bed accompanied by nurses staff, no distress noted, call light within reach.
[2021-08-23 18:00] VITALS: BP 145/69
[2021-08-23] MEDS: K and/or MAG REPLACEMENT MC SCH (20:00)
[2021-08-23] MEDS: apixaban 2.5mg tablet PO SCH (20:20)
[2021-08-23] MEDS: docusate sod 100mg capsule PO SCH (20:20)
[2021-08-23] MEDS: furosemide 10 MG/1 ML 10ml inj IV SCH (20:23)
[2021-08-23 22:00] VITALS: BP 104/51
[2021-08-24] VITALS (7 sets, daily range): BP systolic 107–128; BP diastolic 52–72
[2021-08-24 07:48] LABS: BASOPHILS % (AUTO) 0.8 % (0-1); EOSINOPHILS # (AUTO) 0.1 X10'3 (0-0.9); EOSINOPHILS % (AUTO) 1.2 % (0-6); HEMATOCRIT 34.8 % (42.0-52.0); HEMOGLOBIN 11.2 g/dl (14.0-17.9); LYMPHOCYTES # (AUTO) 0.6 X10'3 (1.1-4.8); LYMPHOCYTES % (AUTO) 11.1 % (21-51); MEAN CORPUSCULAR HEMOGLOBIN 32.1 PG (27.0-31.0); MEAN CORPUSCULAR VOLUME 100.2 FL (78-98); MEAN PLATELET VOLUME 9.4 FL (7.4-10.4); MONOCYTES # (AUTO) 0.6 X10'3 (0-0.9); MONOCYTES % (AUTO) 9.6 % (2-12); NEUTROPHILS # (AUTO) 4.5 X10'3 (1.8-7.7); NEUTROPHILS % (AUTO) 77.3 % (42-75); PLATELET COUNT 157 X10'3 (140-440); RED BLOOD COUNT 3.48 X10'6 (4.70-6.10); RED CELL DISTRIBUTION WIDTH 22.8 % (11.5-14.5); WHITE BLOOD COUNT 5.8 X10'3 (4.5-11.0)
[2021-08-24] MEDS: K and/or MAG REPLACEMENT MC SCH ×2 (08:00→20:00)
[2021-08-24 08:22] LABS: ALANINE AMINOTRANSFERASE 30 U/L (12-78); ALBUMIN 3.1 G/DL (3.4-5.0); ALBUMIN/GLOBULIN RATIO 0.9 (1.1-1.5); ALKALINE PHOSPHATASE 165 IU/L (46-116); ANION GAP 8 (8-16); ASPARTATE AMINO TRANSFERASE 25 U/L (10-37); BILIRUBIN,TOTAL 1.2 MG/DL (0.1-1.0); BLOOD UREA NITROGEN 36 MG/DL (7-18); BUN/CREATININE RATIO 18.8 (5.4-32.0); CALCIUM 9.5 MG/DL (8.5-10.1); CHLORIDE 107 MMOL/L (99-107); CREATININE 1.92 MG/DL (0.60-1.10); GLUCOSE 98 MG/DL (70-104); POTASSIUM 3.7 MMOL/L (3.5-5.1); SODIUM 143 MMOL/L (135-145); TOTAL CARBON DIOXIDE 27.8 MMOL/L (24-32); TOTAL PROTEIN 6.7 G/DL (6.4-8.2); eGFR 34 ML/MIN
[2021-08-24] MEDS: allopurinol 300 MG tablet PO SCH (08:30)
[2021-08-24] MEDS: docusate sod 100mg capsule PO SCH ×2 (09:30→21:19)
[2021-08-24] MEDS: levoTHYROXINE 112mcg tablet PO SCH (09:30)
[2021-08-24] MEDS: apixaban 2.5mg tablet PO SCH ×2 (09:30→21:19)
[2021-08-24] MEDS: furosemide 10 MG/1 ML 10ml inj IV SCH ×2 (09:37→21:19)
[2021-08-24] MEDS ORDERED: APIX2.5T PO (10:51)
[2021-08-24] MEDS ORDERED: ALLO100T PO (10:51)
--- NOTE | 2021-08-24 13:37 | NUR ---
Patient states he only takes 100mg of Allupurinal daily.. Its ordered 300mg and pt is refusing.. Paged Dr. Hollingsworth.Awaiting addtl orders.
[2021-08-24] MEDS: potassium Cl 20 mEq SR tablet PO PRN (21:28)
[2021-08-25 00:26] VITALS: BP 121/58
[2021-08-25 02:00] VITALS: BP 106/59
[2021-08-25] MEDS: potassium Cl 20 mEq SR tablet PO PRN (02:59)
[2021-08-25 06:33] LABS: BASOPHILS % (AUTO) 0.8 % (0-1); EOSINOPHILS # (AUTO) 0.1 X10'3 (0-0.9); EOSINOPHILS % (AUTO) 2.1 % (0-6); HEMATOCRIT 31.3 % (42.0-52.0); HEMOGLOBIN 10.3 g/dl (14.0-17.9); LYMPHOCYTES # (AUTO) 0.9 X10'3 (1.1-4.8); MEAN CORPUSCULAR HEMOGLOBIN 32.4 PG (27.0-31.0); MEAN CORPUSCULAR HGB CONC 32.9 g/dL (33.0-36.5); MEAN CORPUSCULAR VOLUME 98.5 FL (78-98); MEAN PLATELET VOLUME 9.2 FL (7.4-10.4); MONOCYTES # (AUTO) 0.6 X10'3 (0-0.9); MONOCYTES % (AUTO) 10.9 % (2-12); NEUTROPHILS # (AUTO) 3.8 X10'3 (1.8-7.7); NEUTROPHILS % (AUTO) 70.2 % (42-75); PLATELET COUNT 149 X10'3 (140-440); RED BLOOD COUNT 3.17 X10'6 (4.70-6.10); RED CELL DISTRIBUTION WIDTH 22.5 % (11.5-14.5); WHITE BLOOD COUNT 5.4 X10'3 (4.5-11.0)
--- NOTE | 2021-08-25 06:59 | NUR ---
Patient in room MED 317B. I have received report from MAURILIO DANIELLE and had the opportunity to ask questions and assume patient care.
[2021-08-25 07:00] VITALS: BP 114/56
[2021-08-25 07:55] LABS: ALANINE AMINOTRANSFERASE 26 U/L (12-78); ALBUMIN 2.8 G/DL (3.4-5.0); ALBUMIN/GLOBULIN RATIO 0.8 (1.1-1.5); ALKALINE PHOSPHATASE 141 IU/L (46-116); ASPARTATE AMINO TRANSFERASE 24 U/L (10-37); BILIRUBIN,TOTAL 1.1 MG/DL (0.1-1.0); BLOOD UREA NITROGEN 39 MG/DL (7-18); BUN/CREATININE RATIO 21.7 (5.4-32.0); CALCIUM 9.3 MG/DL (8.5-10.1); GLUCOSE 95 MG/DL (70-104); TOTAL CARBON DIOXIDE 27.2 MMOL/L (24-32); TOTAL PROTEIN 6.2 G/DL (6.4-8.2); eGFR 36 ML/MIN
[2021-08-25] MEDS: furosemide 10 MG/1 ML 10ml inj IV SCH (08:00)
[2021-08-25] MEDS: K and/or MAG REPLACEMENT MC SCH (08:00)
[2021-08-25] MEDS: apixaban 2.5mg tablet PO SCH (08:01)
[2021-08-25] MEDS: docusate sod 100mg capsule PO SCH (08:02)
[2021-08-25] MEDS: levoTHYROXINE 112mcg tablet PO SCH (08:02)
[2021-08-25 08:06] LABS: ANISOCYTOSIS 3+; PLATELET ESTIMATE NORMAL; SCHISTOCYTES FEW
[2021-08-25 08:07] LABS: ELLIPTOCYTES FEW
[2021-08-25] MEDS: allopurinol 300 MG tablet PO SCH (08:30)
[2021-08-25 10:00] VITALS: BP 114/63
--- NOTE | 2021-08-25 11:29 | NUR ---
UNABLE TO SET UP A FOLLOW UP DR TERRY DUE TO TODAY BEING MAUREEN Addendum: 08/25/21 at 1133 by Joan Puente RN Amended: Links added.
--- NOTE | 2021-08-25 12:20 | NUR ---
PATIENT STABLE AND APPROPRIATE FOR DISCHARGE, IV TAKEN OUT TELE REMOVED, EDUCATION GIVEN, ALL BELONGINGS SENT WITH PATIENT, PATIENT TAKEN TO LOBBY TO AN AWAITING CAR WHERE WILL TAKE PATIENT HOME
--- NOTE | 2021-08-25 13:58 | NUR ---
PATIENT ALREADY HAD DR YOUSIF WITH CALL CENTER TRAINER AND PCP SCHEDULED Addendum: 08/25/21 at 1359 by Joan Puente RN Amended: Links added.
== END 2021-08-25 12:20 | disposition home health service (06) | DRG 291 ==
LOC: ER 09:03 → ED HOLD 14:05 → EDBEDREQ 16:37 → MED 3N 17:49
PROVIDERS: ADMIT Family Medicine; ATTEND Family Medicine
DX: I13.0 Hypertensive heart and chronic kidney disease with heart failure and stage 1 through stage 4 chronic kidney disease, or unspecified chronic kidney disease (principal); I50.23 Acute on chronic systolic (congestive) heart failure; E03.9 Hypothyroidism, unspecified; I48.91 Unspecified atrial fibrillation; S80.922A Unspecified superficial injury of left lower leg, initial encounter; S80.921A Unspecified superficial injury of right lower leg, initial encounter; X58.XXXA Exposure to other specified factors, initial encounter; I87.2 Venous insufficiency (chronic) (peripheral); N18.9 Chronic kidney disease, unspecified; N50.89 Other specified disorders of the male genital organs; Z85.6 Personal history of leukemia; Z95.0 Presence of cardiac pacemaker; Z95.2 Presence of prosthetic heart valve; Z88.8 Allergy status to other drugs, medicaments and biological substances; Y93.89 Activity, other specified; Y92.89 Other specified places as the place of occurrence of the external cause; Y99.8 Other external cause status
CPT/HCPCS: 36415; 71045; 76870; 80053; 83735; 83880; 85008; 85025; 93306; 93976; 97116; 97161; 97530; 99285; G0378; J1940

== ENCOUNTER 2022-02-18 07:44 | Day surgery (SDC) | payer MEDICARE, OTHER ==
[~2022-02-18] VITALS: Ht 182.9 cm; Wt 104.1 kg
[2022-02-18] VITALS (7 sets, daily range): BP systolic 126–147; BP diastolic 64–88
[~2022-02-18 07:44] MED LIST changes: +ALLO100T PO; -ALLOPURINOL 300 MG PO; +APIX2.5T PO; -APIX5TAB3 PO; -ASCO500C17 PO; -CHOL400T8 PO; -CYAN250010 PO; -FOLI0.4T14 PO; -IBRU280T PO; -LACT1CAP65 PO; -METO50TA7 PO; -OMEG-79 PO; -UBID50TA3 PO; -ZAR5T PO
[2022-02-18] MEDS ORDERED: LIDOcaine 1% 30ml preserv. free vial SQ STA (08:04)
[2022-02-18] MEDS ORDERED: albumin 25% 100mL bottle x 1 IV PRN (08:05)
[2022-02-18] MEDS ORDERED: ALLO100T PO (08:25)
== END 2022-02-18 11:05 | disposition home or self-care (01) ==
LOC: SSTAY O 07:44
PROVIDERS: ATTEND Radiology Diagnostic Radiology
DX: R18.8 Other ascites (principal); D64.9 Anemia, unspecified; I48.91 Unspecified atrial fibrillation; I11.0 Hypertensive heart disease with heart failure; I50.9 Heart failure, unspecified; C91.10 Chronic lymphocytic leukemia of B-cell type not having achieved remission; Z98.890 Other specified postprocedural states; Z88.1 Allergy status to other antibiotic agents; Z79.899 Other long term (current) drug therapy; Z79.01 Long term (current) use of anticoagulants
CPT/HCPCS: 49083; J3490; P9047; A6258

== ENCOUNTER 2022-04-18 06:56 | Day surgery (SDC) | payer MEDICARE, OTHER ==
[2022-04-18] VITALS (9 sets, daily range): BP systolic 124–140; BP diastolic 67–77
[~2022-04-18] VITALS: Ht 182.9 cm; Wt 103.6 kg
[2022-04-18] MEDS ORDERED: LIDOcaine 1% 30ml preserv. free vial SQ STA (07:17)
[2022-04-18] MEDS ORDERED: DOCU-148 PO (07:53)
[2022-04-18] MEDS: albumin 25% 100mL bottle x 1 IV PRN ×2 (08:42→09:38)
== END 2022-04-18 11:13 | disposition home or self-care (01) ==
LOC: SSTAY O 06:56
PROVIDERS: ATTEND Radiology Diagnostic Radiology
DX: R18.8 Other ascites (principal); D64.9 Anemia, unspecified; I11.0 Hypertensive heart disease with heart failure; I50.9 Heart failure, unspecified; H35.30 Unspecified macular degeneration; I48.91 Unspecified atrial fibrillation; Z79.899 Other long term (current) drug therapy; Z98.890 Other specified postprocedural states
CPT/HCPCS: 49083; J3490; P9047; A6258

== ENCOUNTER 2022-05-13 07:41 | Day surgery (SDC) | payer MEDICARE, OTHER ==
[2022-05-13] VITALS (9 sets, daily range): BP systolic 137–155; BP diastolic 70–82
[~2022-05-13] VITALS: Ht 182.9 cm; Wt 98.7 kg
[~2022-05-13 07:41] MED LIST changes: +DOCU-148 PO
[2022-05-13] MEDS ORDERED: LIDOcaine 1% 30ml preserv. free vial SQ STA (08:06)
[2022-05-13] MEDS ORDERED: albumin 25% 100mL bottle x 1 IV PRN (09:20)
== END 2022-05-13 10:45 | disposition home or self-care (01) ==
LOC: SSTAY O 07:41
PROVIDERS: ATTEND Radiology Vascular & Interventional Radiology
DX: R18.8 Other ascites (principal); D64.9 Anemia, unspecified; I48.91 Unspecified atrial fibrillation; I11.0 Hypertensive heart disease with heart failure; I50.9 Heart failure, unspecified; C91.10 Chronic lymphocytic leukemia of B-cell type not having achieved remission; Z79.899 Other long term (current) drug therapy; Z98.890 Other specified postprocedural states
CPT/HCPCS: 49083; A6258

== ENCOUNTER 2022-06-09 08:50 | Day surgery (SDC) | payer MEDICARE, OTHER ==
[~2022-06-09] VITALS: Ht 182.9 cm; Wt 98.3 kg
[2022-06-09] VITALS (7 sets, daily range): BP systolic 123–141; BP diastolic 59–89
[~2022-06-09 08:50] MED LIST changes: -DOCU-148 PO
[2022-06-09] MEDS ORDERED: LIDOcaine 1% 30ml preserv. free vial SQ STA (08:57)
[2022-06-09] MEDS ORDERED: CARV3.12 PO (09:07)
[2022-06-09] MEDS ORDERED: albumin 25% 100mL bottle x 1 IV PRN (09:15)
== END 2022-06-09 10:50 | disposition home or self-care (01) ==
LOC: SSTAY O 08:50
PROVIDERS: ATTEND Radiology Vascular & Interventional Radiology
DX: R18.8 Other ascites (principal); I48.91 Unspecified atrial fibrillation; I11.0 Hypertensive heart disease with heart failure; I50.9 Heart failure, unspecified; H35.30 Unspecified macular degeneration; Z98.890 Other specified postprocedural states; Z79.899 Other long term (current) drug therapy; Z88.1 Allergy status to other antibiotic agents
CPT/HCPCS: 49083; J3490; P9047; A6258; A6449

== ENCOUNTER 2022-08-07 07:46 | Day surgery (SDC) | payer MEDICARE, OTHER ==
[~2022-08-07] VITALS: Ht 182.9 cm; Wt 100.3 kg
[~2022-08-07 07:46] MED LIST changes: +CARV3.12 PO
[2022-08-07] MEDS ORDERED: albumin 25% 100mL bottle x 1 IV PRN (08:10)
[2022-08-07] MEDS ORDERED: LIDOcaine 1% 30ml preserv. free vial SQ STA (08:42)
[2022-08-07 10:07] VITALS: BP 138/62
[2022-08-07 10:14] VITALS: BP 143/77
[2022-08-07 10:30] VITALS: BP 128/65
[2022-08-07 10:45] VITALS: BP 128/65
[2022-08-07 11:00] VITALS: BP 125/66
== END 2022-08-07 11:25 | disposition home or self-care (01) ==
LOC: SSTAY O 07:46
PROVIDERS: ATTEND Radiology Vascular & Interventional Radiology
DX: R18.8 Other ascites (principal); I48.91 Unspecified atrial fibrillation; I11.0 Hypertensive heart disease with heart failure; I50.9 Heart failure, unspecified; C91.Z0 Other lymphoid leukemia not having achieved remission; H35.30 Unspecified macular degeneration; F10.10 Alcohol abuse, uncomplicated; Z90.49 Acquired absence of other specified parts of digestive tract; Z90.79 Acquired absence of other genital organ(s); Z95.2 Presence of prosthetic heart valve; Z98.890 Other specified postprocedural states; Z88.1 Allergy status to other antibiotic agents; Z79.01 Long term (current) use of anticoagulants; Z79.899 Other long term (current) drug therapy
CPT/HCPCS: 49083

== ENCOUNTER 2022-10-17 08:31 | Day surgery (SDC) | payer MEDICARE, OTHER ==
[~2022-10-17] VITALS: Ht 182.9 cm; Wt 98.8 kg
[2022-10-17] VITALS (9 sets, daily range): BP systolic 121–135; BP diastolic 67–77
[2022-10-17] MEDS ORDERED: LIDOcaine 1% (10mg/ml)w/preservative inj. 20ml MDV SQ STA (08:43)
[2022-10-17] MEDS ORDERED: albumin 25% 100mL bottle x 1 IV PRN (09:15)
== END 2022-10-17 11:50 | disposition home or self-care (01) ==
LOC: SSTAY O 08:31
PROVIDERS: ATTEND Radiology Vascular & Interventional Radiology
DX: R18.8 Other ascites (principal); R14.0 Abdominal distension (gaseous); D64.9 Anemia, unspecified; I48.91 Unspecified atrial fibrillation; C91.10 Chronic lymphocytic leukemia of B-cell type not having achieved remission; I11.0 Hypertensive heart disease with heart failure; I50.9 Heart failure, unspecified; Z79.01 Long term (current) use of anticoagulants; Z79.899 Other long term (current) drug therapy; Z98.890 Other specified postprocedural states; Z88.1 Allergy status to other antibiotic agents
CPT/HCPCS: 49083; J3490; P9047; A6258; A6449

== ENCOUNTER 2022-12-01 07:40 | Day surgery (SDC) | payer MEDICARE, OTHER ==
[~2022-12-01] VITALS: Ht 182.9 cm; Wt 97.3 kg
[2022-12-01] MEDS ORDERED: normal saline 1000ml 1,000 ML IV PRN (08:00)
[2022-12-01] MEDS ORDERED: albumin 25% 100mL bottle x 1 IV PRN (08:00)
[2022-12-01] MEDS ORDERED: LIDOcaine 1% 30ml preserv. free vial IJ STA (08:14)
[2022-12-01 08:30] VITALS: BP 120/66
[2022-12-01 08:39] VITALS: BP 126/70
[2022-12-01 08:54] VITALS: BP 117/65
[2022-12-01 09:05] VITALS: BP 137/65
== END 2022-12-01 09:10 | disposition home or self-care (01) ==
LOC: SSTAY O 07:40
PROVIDERS: ATTEND Radiology Vascular & Interventional Radiology
DX: R18.8 Other ascites (principal); R14.0 Abdominal distension (gaseous); D64.9 Anemia, unspecified; I48.91 Unspecified atrial fibrillation; I11.0 Hypertensive heart disease with heart failure; I50.9 Heart failure, unspecified; C91.10 Chronic lymphocytic leukemia of B-cell type not having achieved remission; Z95.2 Presence of prosthetic heart valve; Z98.890 Other specified postprocedural states; Z88.1 Allergy status to other antibiotic agents; Z79.01 Long term (current) use of anticoagulants; Z79.899 Other long term (current) drug therapy
CPT/HCPCS: 49083; C1729; J3490; A6258

== ENCOUNTER 2023-03-24 07:32 | Day surgery (SDC) | payer MEDICARE, OTHER ==
[2023-03-24] VITALS (9 sets, daily range): BP systolic 121–151; BP diastolic 47–83; PULSE 57–75; RESP 16–18; TEMP 97.7; O2SAT 93–96
[2023-03-24] MEDS ORDERED: albumin (human) 25% 100 ML IV solution IV ONE (08:00)
== END 2023-03-24 10:00 | disposition home or self-care (01) ==
LOC: SSTAY O 07:32
PROVIDERS: ATTEND Radiology Vascular & Interventional Radiology
DX: R18.8 Other ascites (principal); R14.0 Abdominal distension (gaseous); D64.9 Anemia, unspecified; I48.91 Unspecified atrial fibrillation; I11.0 Hypertensive heart disease with heart failure; I50.9 Heart failure, unspecified; Z85.6 Personal history of leukemia; Z98.890 Other specified postprocedural states; Z79.01 Long term (current) use of anticoagulants; Z79.899 Other long term (current) drug therapy; Z88.1 Allergy status to other antibiotic agents
CPT/HCPCS: 49083; C1729; J3490; P9047; A6258

== ENCOUNTER 2023-06-04 08:51 | Day surgery (SDC) | payer MEDICARE, OTHER ==
[~2023-06-04] VITALS: Ht 182.9 cm; Wt 101.3 kg
[2023-06-04 09:00] VITALS: BP 125/76; PULSE 60; RESP 16; TEMP 97; O2SAT 96
[2023-06-04] MEDS ORDERED: normal saline 1000ml 1,000 ML IV PRN (09:20)
[2023-06-04] MEDS: albumin 25% 100mL bottle x 1 IV PRN ×2 (09:40→10:58)
[2023-06-04 10:25] VITALS: BP 114/60; PULSE 60; RESP 16; O2SAT 94
[2023-06-04 10:40] VITALS: BP 121/67; PULSE 60; RESP 16; O2SAT 95
[2023-06-04 10:55] VITALS: BP 121/69; PULSE 57; RESP 15; O2SAT 95
[2023-06-04 11:05] VITALS: BP 115/66; PULSE 61; RESP 16; O2SAT 95
[2023-06-04 11:20] VITALS: BP 118/69; PULSE 60; RESP 16; O2SAT 94
== END 2023-06-04 11:35 | disposition home or self-care (01) ==
LOC: SSTAY O 08:51
PROVIDERS: ATTEND Radiology Vascular & Interventional Radiology
DX: R18.8 Other ascites (principal); R14.0 Abdominal distension (gaseous); D64.9 Anemia, unspecified; I48.91 Unspecified atrial fibrillation; I11.0 Hypertensive heart disease with heart failure; I50.9 Heart failure, unspecified; I35.0 Nonrheumatic aortic (valve) stenosis; D64.89 Other specified anemias; M10.9 Gout, unspecified; Z79.01 Long term (current) use of anticoagulants; Z98.890 Other specified postprocedural states; Z85.6 Personal history of leukemia; Z88.1 Allergy status to other antibiotic agents; Z79.899 Other long term (current) drug therapy
CPT/HCPCS: 49083; C1729; P9047; A6258; A6449